=== PATIENT | male | born 1960 | race Caucasian/White ===

== ENCOUNTER 2023-07-28 08:21 | Inpatient (IN) | payer OTHER, SELFPAY ==
[2023-07-26] VITALS (7 sets, daily range): BP systolic 71–130; BP diastolic 35–70; BMI 37.3
[2023-07-26 12:09] LABS: Glucose - Point of Care 123 mg/dl (70-99)
--- NOTE | 2023-07-26 12:16 | ED.GENMED ---
History of Present Illness
General
Chief Complaint: DVT/Possible Blood Clot
Time Seen by Provider: 07/26/23 12:04
Travel History
Have you had any contact with someone who has COVID-19?: No
Do you have any symptoms of coronavirus? Fever > 100 degrees, chills, cough, shortness of breath, sore throat, loss of taste or smell, muscle aches, or headache?: No
History of Present Illness
History of Present Illness:
63-year-old male with history of hypertension presents to the emergency department for evaluation of sudden onset left thigh pain developing earlier this morning. He is currently resident at [facility], medical staff
evaluated him and noted that he was diaphoretic, apparently administered him 324 mg of aspirin and a sublingual nitroglycerin for transferring him to the emergency department. He states the pain in the left thigh is severe, has chronic neuropathy
in the lower extremities but denies any new numbness. Denies any fevers or chills, denies dizziness or lightheadedness. No chest pain or shortness of breath.
Review of Systems
Review of Systems
Allergies reviewed?: Yes
All Other Systems: ROS reviewed and negative except as documented in HPI and ROS
Phy Exam
Physical Exam
Physical Exam:
GEN: Diaphoretic, appears uncomfortable
Eyes: PERRLA, EOMs intact, no scleral icterus
HENT: NCAT, oral mucosa moist
Lungs: CTAB, no wheezes, rales, rhonchi, normal chest wall excursion
Cardiac: RRR, no M/R/G, no peripheral edema. Radial pulses 2+ bilat
Abdomen: S, NT, ND, NABS, no masses or hepatosplenomegaly
Neuro: AO x 3. Sensation intact to bilateral lower extremities without deficit
MSK/Skin: No gross deformity or ecchymosis. Exquisitely tender to even light palpation of the left thigh, no overt erythema. There is erythema however to the left medial calf, numerous skin excoriations and punctate skin lesions. Dorsalis pedis
pulses 2+ bilaterally
Psych: Calm, cooperative, proper hygiene
Course
Orders/Labs/Results
Orders:
Orders
07/26/23 Lunch
Cholesterol Lowering
At Your Request: Full Participation
Cholesterol Lowering: Sodium, 2 Gram
07/26/23 12:07
EKG [Electrocardiogram (*1)] Urgent
Reason for Study: Fatigue / Weakness
EKG- Treatment ONCE
07/26/23 12:16
Venous Doppler Lwr Ext Left [US Periph Venous LOWER Ext LT] Urgent
Comment:
Reason For Exam: L thigh pain/diaphoresis
07/26/23 12:30
Basic Metabolic Panel Urgent
CPK [Creatine Phosphokinase] Urgent
Complete Blood Count/With Diff Urgent
Lactic Acid Q4H
Comment: CANCEL 2nd LACTIC ACID IF 1st LACTIC ACID IS LESS THAN 2
Prothrombin Time Urgent
Blood Culture Q30M
JORDAN Source: Blood/Venous
Specimen Description:
07/26/23 13:29
0.9% Sodium Chloride 1000 ml [Nss] 1,000 ml IV BOLUS
07/26/23 14:30
CeFAZolin 1 GRAM [Ancef] 1 gram in 5 ml IV NOW
Vancomycin [Vancocin] 2,000 mg 0.9% Sodium Chloride 500 ml [Nss] 500 ml IV NOW
07/26/23 15:23
Admit/Transfer Patient As Directed
Co-Sign Provider:
Level of Care: Observation services
Assign to:: Medical/Surgical
Physician / Group: Adryan/Hospitalist
Diagnosis: LLE Cellulitis
07/26/23 15:27
Code Status As Directed
Resuscitation Status: Full Code
07/26/23 16:33
Blood Culture Q30M
JORDAN Source: Blood/Venous
Specimen Description:
07/26/23 17:22
0.9% Sodium Chloride 1000 ml [Nss] 1,000 ml IV 125 mls/hr
Acetaminophen [Tylenol] 650 mg PO Q4HPRN PRN
07/26/23 17:22
Urine Culture Urgent
JORDAN Source: Urine
Specimen Description:
Activity As Directed
Activity Level: Out of Bed-Early Mobility
Intake/ Output As Directed
Frequency: Per unit guidelines
Vital Signs As Directed
Frequency: Per unit guidelines
Pulse Ox/spot Check [RESP] Routine
Quantity: 1
Special Instructions: pulse oximetry on admission then every shift if on oxygen.
Call if oxygen saturation < ___ %
DX Deep Vein Thrombosis Video Routine
07/26/23 18:00
Enoxaparin Sodium [Lovenox] 40 mg SC QPM
07/26/23 18:56
Lactic Acid Q4H
Comment: CANCEL 2nd LACTIC ACID IF 1st LACTIC ACID IS LESS THAN 2
07/27/23 06:00
Complete Blood Count/With Diff IN AM
Comprehensive Metabolic Panel IN AM
Abnormal Lab Results
07/26/23 07/26/23
12:07 12:30
WBC 13.3 H 10^3/uL
(4.8-10.8)
Abs Immat Gran (auto) 0.1 H 10^3/uL
(0-0.05)
Absolute Neuts (auto) 11.6 H 10^3/uL
(1.4-6.5)
Absolute Lymphs (auto) 0.3 L 10^3/uL
(1.2-3.4)
Absolute Monos (auto) 1.1 H 10^3/uL
(0.1-0.6)
Immature Gran % 1.1 H %
(0-0.5)
Neutrophils % 87.4 H %
(42.2-75.2)
Lymphocytes % 2.6 L %
(20.5-51.1)
PT 14.7 H Sec
(11.4-14.6)
Sodium 133 L mmol/L
(135-145)
BUN 24 H mg/dl
(9-20)
Glucose 118 H mg/dl
(70-99)
Lactic Acid 2.2 H mmol/L
(0.7-2.0)
Creatine Kinase 185 H U/L
(55-170)
POC Glucose 123 H mg/dl
(70-99)
07/26/23 12:30
07/26/23 12:30
Vital Signs
Initial and Last Documented VS:
Initial Vital Signs
Pulse Ox
94
07/26/23 12:06
Last Documented Vital Signs
Temp Pulse Resp BP Pulse Ox
100.4 F H 79 18 116/68 97
07/26/23 17:37 07/26/23 17:34 07/26/23 17:37 07/26/23 17:34 07/26/23 17:52
MDM/Problems Addressed
MDM/Problems Addressed:
Unclear why exactly the patient has pain to the left thigh because the source of cellulitis appears to be the left calf. No evidence for DVT, and associated left groin adenopathy is likely reactive. He is high risk for complicated infections given
that he is a correctional facility resident, will admit for IV antibiotics
Comment
Comment:
Initial EKG independently interpreted by me shows normal sinus rhythm at a rate of [address] changes concerning for ischemia, QTc of 464
*Critical Care Note
Total Time (30-74mins, 75-104mins- exclusive of procedures): Not Applicable
ED Attending Note
-
Portions of this chart may have been created with voice recognition software.� Occasional wrong word or��sound alike� substitutions may have occurred due to the inherent limitations of voice recognition software.
Discharge Plan
Departure
Patient Disposition: Admit
Date of Disposition: 07/26/23
Time of Disposition: 14:08
Presentation/result/management discussed w/ accepting MD/DO: Hospitalist
Discharge Problem:
Cellulitis of left lower extremity
Interventions
Interventions:
*Risk Screen - Suicide Last Done: 07/26/23 17:58
*General Assessment Last Done: 07/26/23 13:39
*Neglect/Abuse Screening Last Done: 07/26/23 13:39
*ED COVID-19 Vaccine History Last Done: 07/26/23 13:39
*Nursing Disposition Last Done: 07/26/23 18:16
ED- Cardiac Assessment Last Done: 07/26/23 14:50
ED- Pulmonary Assessment Last Done: 07/26/23 13:43
ED-Peripheral Vascular Assessment Last Done: 07/26/23 14:52
ED-Skin Assessment Last Done: 07/26/23 14:51
Discharge Date and Time
Discharge Date/Time: 07/26/23 18:16
[2023-07-26 12:41] LABS: % Basophils 0.3 % (0-2); % Eosinophils 0.2 % (0-6); % Immature Granulocytes 1.1 % (0-0.5); % Lymphocytes 2.6 % (20.5-51.1); % Monocytes 8.4 % (1.7-9.3); % Neutrophils 87.4 % (42.2-75.2); Absolute Immature Granulocytes 0.1 10^3/uL (0-0.05); Absolute Lymphocytes 0.3 10^3/uL (1.2-3.4); Absolute Monocytes 1.1 10^3/uL (0.1-0.6); Absolute Neutrophils 11.6 10^3/uL (1.4-6.5); Hematocrit 39.9 % (39.0-52.0); Hemoglobin 14.6 g/dL (13.0-18.0); Mean Corp Hgb Conc. 36.6 g/dL (33.0-37.0); Mean Corpuscular Hgb 30.5 pg (27.0-31.0); Mean Corpuscular Volume 83.3 fL (80.0-94.0); Mean Platelet Volume 9.8 fL (7.4-10.4); Nucleated Red Blood Cells % 0 % (-); Platelet Count 183 10^3/uL (130-400); Red Blood Cell Count 4.79 10^6/uL (4.70-6.10); Red Cell Dist. Width 13.7 % (11.5-14.5); White Blood Cell Count 13.3 10^3/uL (4.8-10.8)
[2023-07-26 12:52] LABS: INR 1.17; PT 14.7 Sec (11.4-14.6)
[2023-07-26 12:53] LABS: Lactic Acid 2.2 mmol/L (0.7-2.0)
[2023-07-26 12:58] LABS: Blood Urea Nitrogen 24 mg/dl (9-20); Calcium 9.5 mg/dl (8.4-10.2); Carbon Dioxide 25 mmol/L (22-30); Chloride 101 mmol/L (98-107); Creatine Phosphokinase 185 U/L (55-170); Estimated Creatinine Clearance 91 ml/min; Glucose 118 mg/dl (70-99); Sodium 133 mmol/L (135-145); eGFR > 60.00
[2023-07-26] MEDS: NSS 1000 IV ×2 (14:39→17:47)
[2023-07-26] MEDS: ANCEF 5 IV (14:40)
[2023-07-26] MEDS: VANCOCIN 540 MG IV (14:41)
--- NOTE | 2023-07-26 14:49 | HPS.HSE ---
Addendum entered and electronically signed by Vanda Cornelius, 07/26/23 16:52:
Allergies
Allergy/AdvReac Type Severity Reaction Status Date / Time
No Known Allergies Allergy Unverified 07/26/23 12:02
Home Medications
escitalopram oxalate 10 mg tablet 10 mg PO DAILY 07/26/23
hydroxyzine pamoate 50 mg capsule 50 mg PO BID PRN anxiety 07/26/23
lisinopril 40 mg tablet 40 mg PO DAILY 07/26/23
lisinopril 40 mg tablet 40 mg PO DAILY 07/26/23
metoprolol tartrate 50 mg tablet 50 mg PO DAILY 07/26/23
metoprolol tartrate 50 mg tablet 75 mg PO HS 07/26/23
naproxen 375 mg tablet 375 mg PO BID PRN pain 07/26/23
nortriptyline 25 mg capsule 50 mg PO HS 07/26/23
omeprazole 20 mg capsule,delayed release 20 mg PO DAILY 07/26/23
Original Note:
Family Physician
-
Family Physician: Facility [facility]
Chief Complaint
-
LLE cellulitis
History of Present Illness
The patient is a 63-year-old male with PMH significant for HTN and chronic LE neuropathy, presents to ED for left thigh pain started this am suddenly. Resides at [facility], and medical staff there evaluated him for
diaphoresis this morning. He received aspirin 324 mg, SL NTG and sent to ED. Pain in left thigh is severe, and associated with left calf pain, redness, and swelling. No known trauma, patient denies having experienced these symptoms in the past, the
redness is new and is associated with pruritus, has some excoriation in LEs from itching. He has hx of IVDA a 'long time ago' and no recent drug use. No CP, no SOB, no fevers, no n/v/d. + diaphoresis.
ED txt:
-Ancef 1 gram IV once
-Vancomycin
-NS IVF bolus 1 liter
Medical History
Past Medical History
Past Medical History: Reports HTN and Other (b/l LE neuropathy)
Past Surgical History: Reports Other (hernia repair)
Social History
Tobacco: Non-smoker
Alcohol: None
Drug: Former User
Living: Custodial
Family History
Family History: Diabetes and Other (cancer)
Allergies / Home Medications
Allergies reflects when Allergies were last updated in [employer].
Home Medications with original date entered in [employer]
Allergy/Medication List:
Allergies
Allergy/AdvReac Type Severity Reaction Status Date / Time
No Known Allergies Allergy Unverified 07/26/23 12:02
Patient does not know what medications he takes. Called [facility] and no answer.
Review of Systems
-
A 12 point ROS was completed and negative except as noted: Yes
Physical Exam
Vital Signs
Vital Signs
Temp Pulse Resp BP Pulse Ox
98.7 F 73 24 106/69 95
07/26/23 12:10 07/26/23 14:30 07/26/23 14:30 07/26/23 14:00 07/26/23 14:30
Physical Exam
General: Well Developed, Well Nourished, No Apparent Distress and Comfortable
HEENT: NormoCephalic, Anicteric and Moist mucous membranes
Respiratory: Clear
Cardiac: S1/S2 and Regular Rhythm
GI: Soft, Non Tender and Non Distended
Musculoskeletal: No Clubbing, No Cyanosis and No Edema
Skin: Warm, Dry and Lesions (excoriations from scratching b/l LE, redness and induration ankle to below knee and excoriated funes on left thigh. compartments are soft, no areas of focal induration nor abscess)
Neuro: AO x 3, No Motor Deficits and Nonfocal/grossly intact
Psych: Calm
Laboratory Results
-
07/26/23 12:30
07/26/23 12:30
Laboratory Results
PT 14.7 Sec (11.4-14.6) H 07/26/23 12:30
INR 1.17 07/26/23 12:30
Lactic Acid 2.2 mmol/L (0.7-2.0) H 07/26/23 12:30
Total Bilirubin Cancelled 07/26/23 12:30
AST Cancelled 07/26/23 12:30
ALT Cancelled 07/26/23 12:30
Alkaline Phosphatase Cancelled 07/26/23 12:30
Data Reviewed
-
Ultrasound: Report Reviewed by me ( No evidence of deep venous thrombosis of the left lower extremity.)
Medical Tests (Nuc Med, Echo, EKG etc): Image Personally Visualized and interpreted (EKG NSR at a rate of [address] changes concerning for ischemia, QTc 464) and Report Reviewed by me
Impression/Plan
-
IMPRESSION:The patient is a 63-year-old male with PMH significant for HTN and chronic LE neuropathy, presents to ED for left thigh pain started this am suddenly. Resides at [facility], and medical staff there evaluated him
for diaphoresis this morning. He received aspirin 324 mg, SL NTG and sent to ED. Pain in left thigh is severe, and associated with left calf pain, redness, and swelling. No known trauma, patient denies having experienced these symptoms in the past,
the redness is new and is associated with pruritus, has some excoriation in LEs from itching. He has hx of IVDA a 'long time ago' and no recent drug use. No CP, no SOB, no fevers, no n/v/d. + diaphoresis.
ED txt:
-Ancef 1 gram IV once
-Vancomycin IV once
-NS IVF bolus 1 liter
#LLE Cellulitis associated with thigh pain and systemic inflammatory response (HR 95, RR 22, WBC 13.3) and lactic acidosis 2.2
-�No evidence of deep venous thrombosis of the left lower extremity.
- Cont IV Vancomycin and monitor signs and symptoms
- blood cultures
-IV NS 125 mL per hour x 1 liters then reassess
#HTN, essential
-will have to get med rec (patient does not recall HTN meds and no list from [facility])
#Prior history of IVDA, has not used drugs in years
#Prior tobacco use -stopped 1 year ago
[facility]
DVT proph-Lovenox
Full Code
--- NOTE | 2023-07-26 17:44 | PHA.VAN.IN ---
Assessment
- Assessment
Renal Function: Unknown baseline
Maximum Temperature: 100.4F rectal
Concomitant Antimicrobials: Cefazolin
AUC Dosing Plan
- Dosing Variables
Dosing Weight (kg): 108
Dosing CrCl (ml/min): 91
Vd coefficient (L/kg): 0.6
- Empiric Dosing
Initial / Loading Dose: Vanco 2000 mg
Maintenance Regimen: Vanco 1250 mg
Estimated AUC (mcg*h/mL): 512
Estimated Peak (mcg*h/mL): 31.3
Estimated Trough (mcg/ml): 13.5
Estimated Half Life (H): 8.7
- Monitoring
No levels ordered at this time: Consider level in next few days
Pharmacokinetics Vancomycin I
- -
Patient Age: 63
Patient Sex: Male
Vancomycin Day #: 1
Indication: Skin And Soft Tissue (LLE cellulitis)
Requesting Provider: Dr. Cornelius
Pertinent Antimicrobial Allergies:
NKA
Height / Weight:
Height 5 ft 7 in
Actual Weight 108 kg
- Vital Signs / Lab Results
Temp Pulse Resp BP Pulse Ox
100.4 F H 79 18 116/68 97
07/26/23 17:37 07/26/23 17:34 07/26/23 17:37 07/26/23 17:34 07/26/23 17:34
Lab Results - Hematology
07/26/23
12:30
WBC 13.3 H
Lab Results - Chemistry
07/26/23
12:30
BUN 24 H
Creatinine 1.0
Estimated Creat Clear 91
Albumin Cancelled
07/26/23
12:30
Lactic Acid 2.2 H
[2023-07-26] MEDS: LOVENOX 40 MG SC (17:47)
[2023-07-26] MEDS: TYLENOL 650 MG PO (17:47)
--- NOTE | 2023-07-26 18:40 | PTCARENOTE ---
Pt admitted from ED, c/o 12/11 left leg pain. Left leg warm red and swollen, weak dorsalis pedal pulse present. Pt diaphoretic with rectal temp of 100.4, pt given tylenol, IV fluids as ordered. Pt unable to bear weight on his right leg due to pain.
[2023-07-26 19:17] LABS: Lactic Acid 2.4 mmol/L (0.7-2.0)
[2023-07-26] MEDS: ANCEF 10 IV (22:11)
[2023-07-26] MEDS: PAMELOR 50 MG PO (22:11)
[2023-07-26] MEDS: LOPRESSOR 75 MG PO (22:12)
[2023-07-26] MEDS: REFRESH EYE DROPS (PF) 1 DROPS OPHTH (22:50)
[2023-07-27] MEDS: ROBITUSSIN 100 MG PO ×2 (03:51→17:31)
[2023-07-27] MEDS: VANCOCIN 275 MG IV ×2 (05:48→17:28)
[2023-07-27 06:44] LABS: % Basophils 0.4 % (0-2); % Eosinophils 0.1 % (0-6); % Immature Granulocytes 0.9 % (0-0.5); % Lymphocytes 5.6 % (20.5-51.1); % Monocytes 3.6 % (1.7-9.3); % Neutrophils 89.4 % (42.2-75.2); Absolute Immature Granulocytes 0.1 10^3/uL (0-0.05); Absolute Lymphocytes 0.6 10^3/uL (1.2-3.4); Absolute Monocytes 0.4 10^3/uL (0.1-0.6); Absolute Neutrophils 9.4 10^3/uL (1.4-6.5); Hematocrit 36.8 % (39.0-52.0); Mean Corp Hgb Conc. 35.3 g/dL (33.0-37.0); Mean Corpuscular Hgb 30.5 pg (27.0-31.0); Mean Corpuscular Volume 86.4 fL (80.0-94.0); Mean Platelet Volume 9.2 fL (7.4-10.4); Nucleated Red Blood Cells % 0 % (-); Platelet Count 131 10^3/uL (130-400); Red Blood Cell Count 4.26 10^6/uL (4.70-6.10); White Blood Cell Count 10.5 10^3/uL (4.8-10.8)
[2023-07-27 07:00] VITALS: BP 155/76
[2023-07-27 07:14] LABS: ALT (SGPT) 68 U/L (0-50); AST (SGOT) 55 U/L (17-59); Albumin 3.1 g/dl (3.5-5.0); Alkaline Phosphatase 53 U/L (38-126); Blood Urea Nitrogen 21 mg/dl (9-20); Calcium 8.3 mg/dl (8.4-10.2); Carbon Dioxide 25 mmol/L (22-30); Chloride 105 mmol/L (98-107); Estimated Creatinine Clearance 101 ml/min; Glucose 109 mg/dl (70-99); Potassium 4.2 mmol/L (3.5-5.1); Sodium 131 mmol/L (135-145); Total Protein 6.2 g/dl (6.3-8.2); eGFR > 60.00
[2023-07-27] MEDS: ANCEF 10 IV ×2 (07:51→16:15)
[2023-07-27] MEDS: LOPRESSOR 50 MG PO (07:52)
[2023-07-27] MEDS: ZESTRIL 40 MG PO (07:52)
[2023-07-27] MEDS: PROTONIX 40 MG PO (07:52)
[2023-07-27] MEDS: LEXAPRO 10 MG PO (07:52)
--- NOTE | 2023-07-27 10:04 | PHA.VAN.FU ---
Vancomycin Assessment / Plan
- Assessment
Renal Function: Stable
WBC's are: Trending Down
Concomitant Antimicrobials: cefazolin
- Dosing Plan
Continue: Vanc 1250mg Q12H
- Monitoring Plan
No level(s) ordered at this time: consider levels in next few days
- Follow Up
Pharmacy will continue to follow.
Vancomycin Follow UP
- -
Patient Age: 63
Patient Sex: Male
Vancomycin Day #: 2
Indication: Skin And Soft Tissue
Requesting Provider: Dr. Cornelius
Pertinent Antimicrobial Allergies:
NKDA
Height / Weight:
Height 5 ft 7 in
Actual Weight 108 kg
Pertinent Past Medical History: BMI ~37
- Vital Signs / Lab Results
Temp Pulse Resp BP Pulse Ox
98.6 F 74 19 155/76 96
07/27/23 07:00 07/27/23 07:00 07/27/23 07:00 07/27/23 07:00 07/27/23 07:00
Lab Results - Hematology
07/26/23 07/27/23
12:30 06:15
WBC 13.3 H 10.5
Lab Results - Chemistry
07/26/23 07/27/23
12:30 06:15
BUN 24 H 21 H
Creatinine 1.0 0.9
Estimated Creat Clear 91 101
Albumin Cancelled 3.1 L
07/26/23 07/26/23
12:30 18:56
Lactic Acid 2.2 H 2.4 H
[2023-07-27] MEDS: TYLENOL 650 MG PO ×2 (11:58→17:31)
--- NOTE | 2023-07-27 13:28 | CM ---
Patient from [facility]. He signed obs letter. Will return to intermediate when stable.
Plan: Case management will continue to follow and assist with discharge planning. Patient will return to [facility] when medically stable.
--- NOTE | 2023-07-27 14:55 | W.PN.HOSP.TC ---
Addendum entered and electronically signed by Raymundo Moser MD 07/27/23 23:39:
Attending Addendum-
I saw and evaluated the patient. I reviewed the resident�s note and agree with findings and plan as documented in the resident�s note. Complains of worsening pain and spreading cellulitis in LLE. Had fever in last 24 hours Full 12 point ROS reviewed
and negative except as documented Exam: Gen NAD heart RRR lungs clear abd soft LE- LLE red warm extending to groin Plan:
# Sepsis Secondary to cellulitis- vikas area of cellulitis, cont vanco zosyn start IVF, repeat CBC in in am
# Hyponatremia- hypovolemic - start IVF if worsens check urine studies for further eval repeat BMP in am
# Leukocytosis- resolving- repeat CBC in am
# Depression- cont eds
# HTN-stable monitor cont meds
# GERD- cont meds
Time spent coordinating care, review of plan of care with resident, review of records, med rec, consults, notes, labs, rads, d/w nursing � 52 mins
Original Note:
Today's Communication/Plan
-
Continue antibiotics
Await blood cultures and urine cultures
IV fluids
Monitor WBC and temperature curve
Assessment / Plan
Assessment / Plan
Impression
Left lower leg cellulitis
Hyponatremia
Cough
Hypertension
Prior IV drug use
Prior tobacco use
Plan :
Left lower leg cellulitis
Continue IV cefazolin and IV vancomycin
Await for urine and blood cultures
One true fever of 100.4 in the past 24 hours
Monitor WBC, temperature curve
If temperature keeps rising then consider changing antibiotics antibiotics and get ID on board.
Peripheral vascular ultrasound 07/26/2023
IMPRESSION: No evidence of deep venous thrombosis of the left lower extremity.
Hyponatremia
Volume status euvolemic
Sodium 131
Started on IV fluids
CBC BMP in a.m
Cough
Mucinex ordered
Hypertension
Continue home meds- lisinopril and metoprolol
Prior IV drug use-denies using it
prior tobacco use-quit a year ago
DVT prophylaxis
Lovenox
Anticipated Discharge: 24 - 48 hours
Subjective/Interval History
-
Date of Service: July 27, 2023
Patient complains of increased pain pain in his left inner thigh and is now warm to touch.
Objective Data
-
Labs:
Laboratory Results
07/27/23
06:15
WBC 10.5
Hgb 13.0
Hct 36.8 L
Plt Count 131 D
Sodium 131 L
Potassium 4.2
Chloride 105
Carbon Dioxide 25
BUN 21 H
Creatinine 0.9
Glucose 109 H
Calcium 8.3 L
Total Bilirubin 1.0
AST 55
ALT 68 H
Alkaline Phosphatase 53
Vital Signs:
Vital Signs
Temp Pulse Resp BP Pulse Ox
98.6 F 74 19 155/76 96
07/27/23 07:00 07/27/23 07:00 07/27/23 07:00 07/27/23 07:00 07/27/23 07:00
I&O
07/26/23 07/27/23 07/28/23
06:59 06:59 06:59
Intake Total 1505 / 1505
Output Total 600 / 600
Balance 905 / 905
Review of Systems
-
History Source: Patient
All other systems: Reviewed and negative (Except mentioned)
Musculoskeletal: Reports Other (Pain in left inner thigh)
Physical Exam
-
General: Well Developed and Well Nourished
HEENT: Normocephalic and Atraumatic
Respiratory: Clear to Auscultation
Cardiac: Regular Rhythm and S1/S2
GI: Soft, Nontender and Nondistended
Skin: Warm (Erythematous starting from left cough extending up to the inner thigh, tender to touch)
Neuro: AO x 3
Psych: Calm
Data Reviewed
-
Diagnostic Radiology: Discussed with Physician
Labs: Labs Reviewed by me and Discussed with Physician
[2023-07-27 15:00] VITALS: BP 131/80
[2023-07-27] MEDS: NSS 500 IV ×2 (16:10→23:14)
[2023-07-27] MEDS: LOVENOX 40 MG SC (17:28)
[2023-07-27] MEDS: MUCINEX 600 MG PO (20:36)
[2023-07-27 23:00] VITALS: BP 142/90
[2023-07-27] MEDS: PAMELOR 50 MG PO (23:12)
[2023-07-27] MEDS: LOPRESSOR 75 MG PO (23:12)
[2023-07-28] MEDS: ANCEF 10 IV ×3 (00:49→16:51)
[2023-07-28] MEDS: VANCOCIN 275 MG IV ×2 (06:12→17:17)
[2023-07-28 06:34] LABS: % Basophils 0.4 % (0-2); % Eosinophils 3.4 % (0-6); % Immature Granulocytes 0.5 % (0-0.5); % Lymphocytes 11.1 % (20.5-51.1); % Monocytes 8.6 % (1.7-9.3); Absolute Eosinophils 0.3 10^3/uL (0-0.7); Absolute Lymphocytes 0.9 10^3/uL (1.2-3.4); Absolute Monocytes 0.7 10^3/uL (0.1-0.6); Absolute Neutrophils 6.1 10^3/uL (1.4-6.5); Hematocrit 36.6 % (39.0-52.0); Hemoglobin 12.7 g/dL (13.0-18.0); Mean Corp Hgb Conc. 34.7 g/dL (33.0-37.0); Mean Corpuscular Hgb 29.7 pg (27.0-31.0); Mean Corpuscular Volume 85.7 fL (80.0-94.0); Mean Platelet Volume 9.1 fL (7.4-10.4); Nucleated Red Blood Cells % 0 % (-); Platelet Count 128 10^3/uL (130-400); Red Blood Cell Count 4.27 10^6/uL (4.70-6.10)
[2023-07-28] MEDS: NSS 500 IV (07:02)
[2023-07-28 07:55] VITALS: BP 148/91
[2023-07-28] MEDS: LEXAPRO 10 MG PO (07:56)
[2023-07-28] MEDS: ZESTRIL 40 MG PO (07:56)
[2023-07-28] MEDS: PROTONIX 40 MG PO (07:56)
[2023-07-28] MEDS: MUCINEX 600 MG PO ×2 (07:57→19:59)
[2023-07-28] MEDS: LOPRESSOR 50 MG PO (07:57)
[2023-07-28 08:00] LABS: Blood Urea Nitrogen 15 mg/dl (9-20); Calcium 8.4 mg/dl (8.4-10.2); Carbon Dioxide 23 mmol/L (22-30); Chloride 105 mmol/L (98-107); Estimated Creatinine Clearance 114 ml/min; Glucose 107 mg/dl (70-99); Potassium 4.1 mmol/L (3.5-5.1); Sodium 133 mmol/L (135-145); eGFR > 60.00
--- NOTE | 2023-07-28 08:01 | PTCARENOTE ---
Redness to LLE outlined, extends up to L thigh and groin. +2 edema to LLE noted. Peripheral pulses +2 throughout.
--- NOTE | 2023-07-28 09:06 | PHA.VAN.FU ---
Vancomycin Assessment / Plan
- Assessment
Renal Function: Stable
WBC's are: WNL
Concomitant Antimicrobials: cefazolin
- Dosing Plan
Continue: Vanc 1250mg Q12H
- Monitoring Plan
No level(s) ordered at this time: consider levels in next few days
- Follow Up
Pharmacy will continue to follow.
Vancomycin Follow UP
- -
Patient Age: 63
Patient Sex: Male
Vancomycin Day #: 3
Indication: Skin And Soft Tissue
Requesting Provider: Dr. Cornelius
Pertinent Antimicrobial Allergies:
NKDA
Height / Weight:
Height 5 ft 7 in
Actual Weight 108 kg
Pertinent Past Medical History: BMI ~37
- Vital Signs / Lab Results
Temp Pulse Resp BP Pulse Ox
98.4 F 73 16 148/91 98
07/28/23 07:55 07/28/23 07:55 07/28/23 07:55 07/28/23 07:55 07/28/23 07:55
Lab Results - Hematology
07/26/23 07/27/23 07/28/23
12:30 06:15 06:20
WBC 13.3 H 10.5 8.0
Lab Results - Chemistry
07/26/23 07/27/23 07/28/23
12:30 06:15 06:20
BUN 24 H 21 H 15
Creatinine 1.0 0.9 0.8
Estimated Creat Clear 91 101 114
Albumin Cancelled 3.1 L
07/26/23 07/26/23
12:30 18:56
Lactic Acid 2.2 H 2.4 H
Microbiology Results
07/27/23 00:51 MRSA Screen - Final
Nose No Methicillin Resistant Staphylococcus aureus isolated.
07/26/23 16:33 Blood Culture - Preliminary
Blood/Venous No Growth in 24 hours- Final report to follow
07/26/23 12:30 Blood Culture - Preliminary
Blood/Venous No Growth in 24 hours- Final report to follow
--- NOTE | 2023-07-28 15:03 | W.PN.HOSP.TC ---
Addendum entered and electronically signed by Raymundo Moser MD 07/28/23 21:21:
Attending Addendum-
I saw and evaluated the patient. I reviewed the resident�s note and agree with findings and plan as documented in the resident�s note. continues to have worsening discomfort and spead of redness and warmth up leg. afebrile last 24 hours Full 12
point ROS reviewed and negative except as documented Exam: Gen NAD heart RRR lungs clear abd soft LE- LLE red warm extending to groin nodular Plan:
# Sepsis Secondary to cellulitis- worsening, c/s ID for eval, cont vanco ancef for now, cont IVF, repeat CBC in in am
# Hyponatremia- hypovolemic - improved with IVF, continue, repeat BMP in am
# Leukocytosis- resolved- repeat CBC in am�
# Depression- cont meds
# HTN-stable monitor cont meds
# GERD- cont meds
Time spent coordinating care, review of plan of care with resident, review of records, med rec, consults, notes, labs, rads, d/w nursing � 51 mins
Original Note:
Today's Communication/Plan
-
Consult ID
Continue antibiotics
monitor WBC and temperature curve
Assessment / Plan
Assessment / Plan
Impression
Left lower leg cellulitis
Hyponatremia
Cough
Hypertension
Prior IV drug use
Prior tobacco use
Plan :
Left lower leg cellulitis
Patient continues to complain of pain
Consult ID
Urine culture prelim no growth
Blood culture prelim no growth
Continue IV cefazolin and IV vancomycin
Afebrile in the past 24 hours
Monitor WBC, temperature curve
Peripheral vascular ultrasound 07/26/2023
IMPRESSION: No evidence of deep venous thrombosis of the left lower extremity.
Hyponatremia
Volume status euvolemic
Sodium improved
Continue IV fluids
CBC BMP in a.m
Cough
Mucinex ordered
Hypertension
Continue home meds- lisinopril and metoprolol
Prior IV drug use-denies using it
prior tobacco use-quit a year ago
DVT prophylaxis
Lovenox
Anticipated Discharge: 24 - 48 hours
Subjective/Interval History
-
Date of Service: July 28, 2023
Patient complains of increased pain in his left calf and left inner thigh
Objective Data
-
Labs:
Laboratory Results
07/28/23
06:20
WBC 8.0
Hgb 12.7 L
Hct 36.6 L
Plt Count 128 L
Sodium 133 L
Potassium 4.1
Chloride 105
Carbon Dioxide 23
BUN 15
Creatinine 0.8
Glucose 107 H
Calcium 8.4
Vital Signs:
Vital Signs
Temp Pulse Resp BP Pulse Ox
98.4 F 73 16 148/91 98
07/28/23 07:55 07/28/23 07:55 07/28/23 07:55 07/28/23 07:55 07/28/23 07:55
I&O
07/27/23 07/28/23 07/29/23
06:59 06:59 06:59
Intake Total 1505 / 1505 2775 / 2775
Output Total 600 / 600 3300 / 3300
Balance 905 / 905 -525 / -525
Review of Systems
-
History Source: Patient
All other systems: Reviewed and negative (Except mentioned)
Musculoskeletal: Reports Other (Pain in left cough extending up to her left inner thigh)
Physical Exam
-
General: Pain
HEENT: Normocephalic and Atraumatic
Respiratory: Clear to Auscultation
Cardiac: Regular Rhythm and S1/S2
GI: Soft and Nontender
Musculoskeletal: Edema, Left Lower Extrem
Skin: Warm (Tender to touch, erythematous, 2+ swelling from left cough extending up to left inner thigh)
Neuro: AO x 3
Psych: Calm
Data Reviewed
-
Labs: Labs Reviewed by me and Discussed with Physician
[2023-07-28 15:28] VITALS: BP 149/83
[2023-07-28] MEDS: NSS 1000 IV (15:39)
[2023-07-28] MEDS: NSS IV (16:17)
--- NOTE | 2023-07-28 17:12 | CON.ID ---
Consultation
-
Date/Time Consultation Requested: 07/28/2023, 1518
Date/Time Consultation Performed: 07/28/2023, 1715
Requesting Provider: Dr. Yash Zimmerman
Performing Provider: Dr. Amelie Lloyd
Reason for Consultation: Urgent consult for spreading cellulitis
Chief Complaint / Past History
Chief Complaint
Left thigh and leg redness
History of Present Illness
63year old male with hx neuropathy, past hx IVDA, currently in nursing home > 1 year , who presented to ED 07/25 with left thigh pain and LE cellulitis. He states on Tuesday 07/25 he suddenly developed shaking chills, then sweats and diaphoresis. He noted
left medial thigh pain. In ED T=100.4, WBC 13.3. Pt noted to have erythema LE ankle to knee. He has been on Vancomycin and cefazolin. He then developed erythema on thigh. Today, erythema on thigh continues to ascend up. Still have upper thigh pain.
Leg looks more red today. He admits to scratching his arms and legs often due to pruritus.
Past History
Additional Past Medical History:
HTN
Neuropathy
Past hx IVDA
incarcerated
Additional Past Surgical History:
Hernia repair
Allergy History:
No Known Allergies Allergy (Unverified 07/26/23 12:02)
Medications Reviewed: Yes
Current Antibiotics:
Cefazolin d3
vancomycin d3
Social History
Tobacco: Former Smoker
Alcohol: None
Drug: Former User
Living: Snf
Family History
Family History: Not Pertinent
Review of Systems
Review of Systems
General: Fever and Chills; Negative Change in Appetite
HEENT: Negative Sinus Problems, Headache or Pharyngitis
Cardiovascular: Negative Chest Pain or Dyspnea
Respiratory: Negative Dyspnea or Cough
Gasteroenterology: Other (no diarrhea); Negative Nausea or Vomiting
Genital / Urological: Negative Dysuria or Flank Pain
Neurological: Negative Headache or Dizziness
All systems: All other systems were reviewed and were negative
Vital Signs
Temp Pulse Resp BP Pulse Ox
99.6 F 88 17 149/83 97
07/28/23 15:28 07/28/23 15:28 07/28/23 15:28 07/28/23 15:28 07/28/23 15:28
Physical Exam
Physical Exam
Constitutional: No Acute Distress and Comfortable
Eyes: No Conjunctival Hemorrhage; Negative Sclera Anicteric
Cardiovascular: Regular Rate and S1/S2
Pulmonary: Clear
Gastrointestinal: Non Tender, Non Distended and Normal Bowel Sounds
Genito-Urinary: Negative Leonardo or CVA Tenderness
Extremities: Edema (2-3+ edema LLE) and Erythema (LLE: erythema from ankle to knee including posterior leg, + warmth; Left thigh: positive erythema from medial thigh to anterior thigh extending to groin, up lateral hip, + warmth)
Skin: Other (Scattered excoriations on BUE, BLE. + tattoos on BUE.)
Wound: Other (fissure on left great toe posterior crease, does not look infected)
Neurological: AO x 3
Lab / Diagnostic Study Results
07/28/23 06:20
07/28/23 06:20
Abs Immat Gran (auto) 0.0 10^3/uL (0-0.05) 07/28/23 06:20
Absolute Neuts (auto) 6.1 10^3/uL (1.4-6.5) 07/28/23 06:20
Absolute Lymphs (auto) 0.9 10^3/uL (1.2-3.4) L 07/28/23 06:20
Absolute Monos (auto) 0.7 10^3/uL (0.1-0.6) H 07/28/23 06:20
Absolute Basos (auto) 0.0 10^3/uL (0-0.2) 07/28/23 06:20
Immature Gran % 0.5 % (0-0.5) 07/28/23 06:20
Neutrophils % 76.0 % (42.2-75.2) H 07/28/23 06:20
Lymphocytes % 11.1 % (20.5-51.1) L 07/28/23 06:20
Monocytes % 8.6 % (1.7-9.3) 07/28/23 06:20
Eosinophils % 3.4 % (0-6) 07/28/23 06:20
Basophils % 0.4 % (0-2) 07/28/23 06:20
PT 14.7 Sec (11.4-14.6) H 07/26/23 12:30
INR 1.17 07/26/23 12:30
Lactic Acid 2.4 mmol/L (0.7-2.0) H 07/26/23 18:56
Microbiology Results
Micro:
07/26/23 16:33 Blood Culture - Preliminary
Blood/Venous No Growth in 48 hours- Final report to follow
07/26/23 12:30 Blood Culture - Preliminary
Blood/Venous No Growth in 48 hours- Final report to follow
07/27/23 00:51 Urine Culture - Preliminary
Urine NO GROWTH
07/27/23 00:51 MRSA Screen - Final
Nose No Methicillin Resistant Staphylococcus aureus isolated.
07/28/23 Venous US LLE: No evidence of deep venous thrombosis of the left lower extremity.
Assessment / Plan
# Acute LLE leg and thigh cellulitis continues to progress
- Suspect Streptococcal (GAS) infection.
- Add short course clindamycin 900 mg IV q8 as toxin inhibitor.
-Continue cefazolin.
-DC Vancomycin.
- YESSY-Wrap leg.
# Fever and leukocytosis resolved.
-Blood cx's neg to date.
[2023-07-28] MEDS: LOVENOX 40 MG SC (17:17)
[2023-07-28] MEDS: CLEOCIN 50 IV (18:13)
[2023-07-28] MEDS: PAMELOR 50 MG PO (21:46)
[2023-07-28] MEDS: LOPRESSOR 75 MG PO (21:47)
[2023-07-28] MEDS: ROBITUSSIN 100 MG PO (21:49)
[2023-07-28 23:00] VITALS: BP 142/87
[2023-07-29] MEDS: FLUSH (NSS) 1 FLUSH IV (00:09)
[2023-07-29] MEDS: ANCEF 10 IV ×3 (00:09→17:25)
[2023-07-29] MEDS: CLEOCIN 50 IV ×3 (02:30→17:27)
--- NOTE | 2023-07-29 03:27 | DOWNTIME ---
There was a [employer] Client Human Resources Technician Downtime on 07/29/2023 from 0100 to 07/29/2023 at 0322. Downtime documentation of patient's care, including medication administrations, has been reconciled in the electronic record per guidelines. Refer to the
patient's paper chart under the miscellaneous tab to see printed paper medication records and downtime forms.
[2023-07-29] MEDS: NSS 1000 IV ×2 (05:38→17:26)
[2023-07-29 06:48] LABS: % Basophils 0.5 % (0-2); % Eosinophils 7.6 % (0-6); % Immature Granulocytes 1.2 % (0-0.5); % Lymphocytes 17.3 % (20.5-51.1); % Monocytes 10.2 % (1.7-9.3); % Neutrophils 63.2 % (42.2-75.2); Absolute Eosinophils 0.5 10^3/uL (0-0.7); Absolute Immature Granulocytes 0.1 10^3/uL (0-0.05); Absolute Lymphocytes 1.1 10^3/uL (1.2-3.4); Absolute Monocytes 0.7 10^3/uL (0.1-0.6); Absolute Neutrophils 4.1 10^3/uL (1.4-6.5); Hematocrit 35.8 % (39.0-52.0); Hemoglobin 12.4 g/dL (13.0-18.0); Mean Corp Hgb Conc. 34.6 g/dL (33.0-37.0); Mean Corpuscular Hgb 29.8 pg (27.0-31.0); Mean Corpuscular Volume 86.1 fL (80.0-94.0); Mean Platelet Volume 9.3 fL (7.4-10.4); Nucleated Red Blood Cells % 0 % (-); Platelet Count 146 10^3/uL (130-400); Red Blood Cell Count 4.16 10^6/uL (4.70-6.10); Red Cell Dist. Width 13.8 % (11.5-14.5); White Blood Cell Count 6.5 10^3/uL (4.8-10.8)
[2023-07-29 07:00] VITALS: BP 159/92
[2023-07-29 08:08] LABS: Blood Urea Nitrogen 16 mg/dl (9-20); Calcium 8.2 mg/dl (8.4-10.2); Carbon Dioxide 28 mmol/L (22-30); Chloride 102 mmol/L (98-107); Estimated Creatinine Clearance 101 ml/min; Glucose 104 mg/dl (70-99); Potassium 3.8 mmol/L (3.5-5.1); Sodium 136 mmol/L (135-145); eGFR > 60.00
--- NOTE | 2023-07-29 08:18 | W.PN.HOSP.TC ---
Addendum entered and electronically signed by Raymundo Moser MD 07/29/23 21:14:
Attending Addendum-
I saw and evaluated the patient. I reviewed the resident�s note and agree with findings and plan as documented in the resident�s note. less pain improving redenss and warmth of LLE. afebrile last 24 hours Full 12 point ROS reviewed and negative
except as documented Exam: Gen NAD heart RRR lungs clear abd soft LE- LLE pink less warm pulses intact Plan:
# Sepsis Secondary to cellulitis- improving appreciate ID input- DC vanco, added clindamycin 07/27- cont ancef, DC IVF, repeat CBC in in am
# Hyponatremia- resolved with with IVF, DC, repeat BMP in am
# Leukocytosis- resolved- repeat CBC in am�
# Depression- cont meds
# HTN-stable monitor cont meds
# GERD- cont meds
Time spent coordinating care, review of plan of care with resident, review of records, med rec, consults, notes, labs, rads, d/w nursing � 35 mins
Original Note:
Today's Communication/Plan
-
Continue with cefazolin and clindamycin
Monitor WBC and temp curve
Assessment / Plan
Assessment / Plan
Impression
Left lower leg cellulitis
Hyponatremia
Cough
Hypertension
Prior IV drug use
Prior tobacco use
Plan :
Left lower leg cellulitis
ID eval appreciated
Suspect streptococcal (GAS) infection per ID
Vancomycin discontinued, continue cefazolin
Short course of clindamycin as it will decrease the toxin produced by the bacteria, also help in microbial opsonization and phagocytosis
Syed wrap
CRP sensitivity > 15, afebrile in the past 24 hours
Monitor WBC, temperature curve
Peripheral vascular ultrasound 07/26/2023
IMPRESSION: No evidence of deep venous thrombosis of the left lower extremity.
Hyponatremia
Resolved
CBC BMP in a.m
Cough
Mucinex ordered
Hypertension
Continue home meds- lisinopril and metoprolol
Prior IV drug use-denies using it
prior tobacco use-quit a year ago
DVT prophylaxis
Lovenox
Anticipated Discharge: 24 - 48 hours
Subjective/Interval History
-
Date of Service: July 29, 2023
Patient states his swelling and pain has improved
Objective Data
-
Labs:
Laboratory Results
07/29/23
06:36
WBC 6.5
Hgb 12.4 L
Hct 35.8 L
Plt Count 146
Sodium 136
Potassium 3.8
Chloride 102
Carbon Dioxide 28
BUN 16
Creatinine 0.9
Glucose 104 H
Calcium 8.2 L
Vital Signs:
Vital Signs
Temp Pulse Resp BP Pulse Ox
99.3 F 78 16 142/87 95
07/28/23 23:00 07/28/23 23:00 07/28/23 23:00 07/28/23 23:00 07/28/23 23:00
I&O
07/28/23 07/29/23 07/30/23
06:59 06:59 06:59
Intake Total 2775 / 2775 3205 / 3205 480 / 480
Output Total 3300 / 3300 1600 / 1600 300 / 300
Balance -525 / -525 1605 / 1605 180 / 180
Review of Systems
-
History Source: Patient
All other systems: Reviewed and negative
Physical Exam
-
General: Well Developed and Well Nourished
HEENT: Atraumatic
Respiratory: Clear to Auscultation
Cardiac: Regular Rhythm and S1/S2
GI: Soft, Nontender and Nondistended
Musculoskeletal: Edema, Left Lower Extrem (Improved)
Skin: Warm (Erythema and swelling has improved in left left lower extremity and thigh)
Neuro: AO x 3
Psych: Calm
[2023-07-29 08:34] LABS: CRP, Highly Sensitive > 15.00 mg/L
[2023-07-29] MEDS: PROTONIX 40 MG PO (08:44)
[2023-07-29] MEDS: MUCINEX 600 MG PO ×2 (08:44→20:18)
[2023-07-29] MEDS: LEXAPRO 10 MG PO (08:44)
[2023-07-29] MEDS: LOPRESSOR 50 MG PO (08:45)
[2023-07-29] MEDS: ZESTRIL 40 MG PO (08:45)
[2023-07-29] MEDS: VISBIOME 2 CAP PO (08:53)
[2023-07-29] MEDS: TYLENOL 650 MG PO (08:57)
--- NOTE | 2023-07-29 11:27 | CM ---
Patient continues to need acute care. Will return to half-way when stable.
Plan: Case management will continue to follow and assist with discharge planning. Skilled Nursing when medically cleared.
--- NOTE | 2023-07-29 13:32 | W.PN.ID1 ---
Date of Service
Date of Service: July 29, 2023
Today's Communication
Continue cefazolin, clindamycin, compression.
Assessment / Plan
# Acute LLE leg and thigh cellulitis stable today
- Suspect Streptococcal (GAS) infection.
- Continue short course clindamycin 900 mg IV q8 (dose 3 of 9) as toxin inhibitor.
-Continue cefazolin.
- Continue YESSY-Wrap leg.
- Emphasized avoidance of scratching.
# Fever and leukocytosis resolved.
-Blood cx's neg to date.
# Additional Past Medical History:
HTN
Neuropathy
Past hx IVDA
incarcerated
Chief Complaint
-: Cellulitis
Subjective / Review of Systems
Thigh pain is a lot better. Leg still swollen.
Vital Signs / Physical Exam
Vital Signs
Vital Signs
Temp Pulse Resp BP Pulse Ox
97.5 F 75 16 159/92 96
07/29/23 07:00 07/29/23 08:45 07/29/23 07:00 07/29/23 08:45 07/29/23 07:00
Physical Exam
Constitutional: No Acute Distress
Extremities: Edema (LLE 2-3+) and Erythema (Erythema slighty receding from ankle otherwise stable leg, thigh to groin/hip erythema without progression. + warmth)
Skin: Rash (scattered excoriations BUE, BLE,abdomen)
Objective Data
Lab Data
Lab Results
07/29/23 06:36
07/29/23 06:36
PT 14.7 Sec (11.4-14.6) H 07/26/23 12:30
INR 1.17 07/26/23 12:30
Estimated Creat Clear 101 ml/min 07/29/23 06:36
Lactic Acid 2.4 mmol/L (0.7-2.0) H 07/26/23 18:56
Total Bilirubin 1.0 mg/dl (0.2-1.3) 07/27/23 06:15
AST 55 U/L (17-59) 07/27/23 06:15
ALT 68 U/L (0-50) H 07/27/23 06:15
Alkaline Phosphatase 53 U/L (38-126) 07/27/23 06:15
Most recent labs reviewed.
Micro Results:
07/26/23 12:30 Blood Culture - Preliminary
Blood/Venous No Growth in 72 hours- Final report to follow
07/27/23 00:51 Urine Culture - Final
Urine NO GROWTH
07/26/23 16:33 Blood Culture - Preliminary
Blood/Venous No Growth in 48 hours- Final report to follow
07/27/23 00:51 MRSA Screen - Final
Nose No Methicillin Resistant Staphylococcus aureus isolated.
07/28/23 Venous US LLE: No evidence of deep venous thrombosis of the left lower extremity.
[2023-07-29 15:30] VITALS: BP 143/73
[2023-07-29] MEDS: LOVENOX 40 MG SC (17:25)
[2023-07-29] MEDS: LOPRESSOR 75 MG PO (22:28)
[2023-07-29] MEDS: PAMELOR 50 MG PO (22:28)
[2023-07-29 23:19] VITALS: BP 152/90
[2023-07-30] MEDS: ANCEF 10 IV ×2 (00:25→08:18)
[2023-07-30] MEDS: CLEOCIN 50 IV ×2 (02:25→09:57)
[2023-07-30 07:00] VITALS: BP 157/98
[2023-07-30 07:59] LABS: % Basophils 0.7 % (0-2); % Eosinophils 10.2 % (0-6); % Immature Granulocytes 3.1 % (0-0.5); % Lymphocytes 15.2 % (20.5-51.1); % Monocytes 12.5 % (1.7-9.3); % Neutrophils 58.3 % (42.2-75.2); Absolute Basophils 0.1 10^3/uL (0-0.2); Absolute Eosinophils 0.8 10^3/uL (0-0.7); Absolute Immature Granulocytes 0.2 10^3/uL (0-0.05); Absolute Lymphocytes 1.1 10^3/uL (1.2-3.4); Absolute Monocytes 0.9 10^3/uL (0.1-0.6); Absolute Neutrophils 4.3 10^3/uL (1.4-6.5); Hemoglobin 13.5 g/dL (13.0-18.0); Mean Corp Hgb Conc. 34.6 g/dL (33.0-37.0); Mean Corpuscular Hgb 29.6 pg (27.0-31.0); Mean Corpuscular Volume 85.5 fL (80.0-94.0); Mean Platelet Volume 9.3 fL (7.4-10.4); Nucleated Red Blood Cells % 0 % (-); Platelet Count 175 10^3/uL (130-400); Red Blood Cell Count 4.56 10^6/uL (4.70-6.10); Red Cell Dist. Width 13.7 % (11.5-14.5); White Blood Cell Count 7.4 10^3/uL (4.8-10.8)
[2023-07-30 08:11] LABS: Blood Urea Nitrogen 15 mg/dl (9-20); Calcium 8.3 mg/dl (8.4-10.2); Carbon Dioxide 25 mmol/L (22-30); Chloride 104 mmol/L (98-107); Estimated Creatinine Clearance 114 ml/min; Glucose 115 mg/dl (70-99); Sodium 134 mmol/L (135-145); eGFR > 60.00
[2023-07-30] MEDS: MUCINEX 600 MG PO ×2 (08:17→20:19)
[2023-07-30] MEDS: VISBIOME 2 CAP PO (08:17)
[2023-07-30] MEDS: ZESTRIL 40 MG PO (08:17)
[2023-07-30] MEDS: LEXAPRO 10 MG PO (08:18)
[2023-07-30] MEDS: PROTONIX 40 MG PO (08:18)
[2023-07-30] MEDS: LOPRESSOR 50 MG PO (08:18)
--- NOTE | 2023-07-30 11:25 | W.PN.ID1 ---
Date of Service
Date of Service: July 30, 2023
Today's Communication
See below.
Assessment / Plan
# Suspect drug rash
-cefazolin vs clindamycin as offending drug
- worsening 'cellulitis' (prior to addition of clindamycin) could be cefazolin drug reaction
-dc cefazolin and clindamycin
- ordered a dose of famotidine and diphenhydramine
# Acute LLE leg and thigh cellulitis
- There is improvement left lower leg cellulitis.
- Drug rash superimposed on thigh cellulitis
- dc clinda and cefazolin.
- Start Unasyn 3g IV q6h. (pt reports he tolerted PCN/Amoxicillin in the past).
- Continue YESSY-Wrap leg.
- Emphasized avoidance of scratching. Of note, I witnessed patient scratching left thigh.
# Fever and leukocytosis resolved.
-Blood cx's neg to date.
# Additional Past Medical History:
HTN
Neuropathy
Past hx IVDA
incarcerated
Chief Complaint
-: Cellulitis
Subjective / Review of Systems
Leg feels better. Thigh pain continues to improve.
Still scratching.
Vital Signs / Physical Exam
Vital Signs
Vital Signs
Temp Pulse Resp BP Pulse Ox
98.0 F 79 16 157/98 97
07/30/23 07:00 07/30/23 07:00 07/30/23 07:00 07/30/23 08:17 07/30/23 10:44
Physical Exam
Constitutional: Comfortable
Eyes: No Conjunctival Hemorrhage and Sclera Anicteric
Extremities: Edema (LLE decreasing) and Erythema (LLE ankle to knee erythema decreasing. Decreased warmth. Left thigh previous pink erythema stable, however has increased redder macular erythema )
Skin: Rash (+ blanchable red macular rash on lower abdomen, left thigh, milder rash on right thigh)
Objective Data
Lab Data
Lab Results
07/30/23 06:56
07/30/23 06:56
PT 14.7 Sec (11.4-14.6) H 07/26/23 12:30
INR 1.17 07/26/23 12:30
Estimated Creat Clear 114 ml/min 07/30/23 06:56
Lactic Acid 2.4 mmol/L (0.7-2.0) H 07/26/23 18:56
Total Bilirubin 1.0 mg/dl (0.2-1.3) 07/27/23 06:15
AST 55 U/L (17-59) 07/27/23 06:15
ALT 68 U/L (0-50) H 07/27/23 06:15
Alkaline Phosphatase 53 U/L (38-126) 07/27/23 06:15
Most recent labs reviewed.
Micro Results:
07/26/23 16:33 Blood Culture - Preliminary
Blood/Venous No Growth in 72 hours- Final report to follow
07/26/23 12:30 Blood Culture - Preliminary
Blood/Venous No Growth in 72 hours- Final report to follow
07/27/23 00:51 Urine Culture - Final
Urine NO GROWTH
07/27/23 00:51 MRSA Screen - Final
Nose No Methicillin Resistant Staphylococcus aureus isolated.
07/28/23 Venous US LLE: No evidence of deep venous thrombosis of the left lower extremity.
Care Review
Plan reviewed with: Physician (Dr. Yash Goodrich)
[2023-07-30] MEDS: BENADRYL 50 MG PO ×2 (11:49→23:33)
[2023-07-30] MEDS: PEPCID 40 MG PO (11:49)
[2023-07-30] MEDS: UNASYN IV ×3 (11:50→23:33)
[2023-07-30 15:28] VITALS: BP 143/75
--- NOTE | 2023-07-30 16:47 | W.PN.HOSP.TC ---
Addendum entered and electronically signed by Raymundo Moser MD 07/30/23 21:24:
Attending Addendum-
I saw and evaluated the patient. I reviewed the resident�s note and agree with findings and plan as documented in the resident�s note. patient has worsening rash with itchiness. afebrile last 24 hours Full 12 point ROS reviewed and negative except
as documented Exam: Gen NAD heart RRR lungs clear abd soft LE- LLE pink less warm pulses intact Skin- generalized mac pap rash thunk and LE areas of excoriation on thrunk and LE Plan:
# Drug Rash- appreciate ID input, DC clinda and ancef- start unasyn- was given benadryl and famotidine- improving continue to monitor closely
# Sepsis Secondary to cellulitis- now with drug rash, unclear offending agent, appreciate ID input- DC clindamycin and ancef (orig start 07/27), start unasyn 07/29 repeat CBC in in am
# Hyponatremia- resolved, repeat BMP in am
# Leukocytosis- resolved- repeat CBC in am�
# Depression- cont meds
# HTN-stable monitor cont meds
# GERD- cont meds
Time spent coordinating care, review of plan of care with resident, review of records, med rec, consults, notes, labs, rads, d/w nursing � 52 mins
Original Note:
Today's Communication/Plan
-
DC clindamycin and cefazolin
Started Unasyn
Monitor WBC and temperature curve
Assessment / Plan
Assessment / Plan
Impression
Left lower leg cellulitis
Hyponatremia
Cough
Hypertension
Prior IV drug use
Prior tobacco use
Plan :
Left lower leg cellulitis
Suspect drug rash
DC clindamycin and cefazolin
Started on Unasyn 3 g IV every 6
Follow clinical improvement
Monitor WBC, temperature curve
Peripheral vascular ultrasound 07/26/2023
IMPRESSION: No evidence of deep venous thrombosis of the left lower extremity.
Hyponatremia
Resolved
CBC BMP in a.m
Cough
Mucinex ordered
Hypertension
Continue home meds- lisinopril and metoprolol
Prior IV drug use-denies using it
prior tobacco use-quit a year ago
DVT prophylaxis
Lovenox
Anticipated Discharge: 24 - 48 hours
Subjective/Interval History
-
Date of Service: July 30, 2023
Patient complains of itchiness all over his body especially in his abdomen, he also reports of increased warmth in the left inner thigh.
Objective Data
-
Labs:
Laboratory Results
07/30/23
06:56
WBC 7.4
Hgb 13.5
Hct 39.0
Plt Count 175
Sodium 134 L
Potassium 4.0
Chloride 104
Carbon Dioxide 25
BUN 15
Creatinine 0.8
Glucose 115 H
Calcium 8.3 L
Vital Signs:
Vital Signs
Temp Pulse Resp BP Pulse Ox
98.8 F 98 17 143/75 95
07/30/23 15:28 07/30/23 15:28 07/30/23 15:28 07/30/23 15:28 07/30/23 15:28
I&O
07/29/23 07/30/23 07/31/23
06:59 06:59 06:59
Intake Total 3205 / 3205 1440 / 1440
Output Total 1600 / 1600 3025 / 3025
Balance 1605 / 1605 -1585 / -1585
Review of Systems
-
History Source: Patient
All other systems: Reviewed and negative (Except mentioned)
Constitutional: Reports Other (Itchiness)
Physical Exam
-
General: Obese
HEENT: Normocephalic and Atraumatic
Respiratory: Clear to Auscultation
Cardiac: Regular Rhythm and S1/S2
Musculoskeletal: Other (Significant improvement of swelling in left lower extremity)
Skin: Warm ( to touch in the left inner thigh, some tenderness present. Macular rash which was blanchable present in the entire back, few on his chest)
[2023-07-30] MEDS: LOVENOX 40 MG SC (17:22)
[2023-07-30] MEDS: LOPRESSOR 75 MG PO (21:38)
[2023-07-30] MEDS: PAMELOR 50 MG PO (21:39)
[2023-07-30 23:28] VITALS: BP 146/79
[2023-07-31] MEDS: UNASYN IV (05:32)
[2023-07-31 06:41] LABS: % Basophils 0.9 % (0-2); % Eosinophils 11.1 % (0-6); % Lymphocytes 17.1 % (20.5-51.1); % Monocytes 12.3 % (1.7-9.3); % Neutrophils 52.6 % (42.2-75.2); Absolute Basophils 0.1 10^3/uL (0-0.2); Absolute Eosinophils 0.7 10^3/uL (0-0.7); Absolute Immature Granulocytes 0.4 10^3/uL (0-0.05); Absolute Lymphocytes 1.1 10^3/uL (1.2-3.4); Absolute Monocytes 0.8 10^3/uL (0.1-0.6); Absolute Neutrophils 3.5 10^3/uL (1.4-6.5); Hematocrit 35.4 % (39.0-52.0); Hemoglobin 12.9 g/dL (13.0-18.0); Mean Corp Hgb Conc. 36.4 g/dL (33.0-37.0); Mean Corpuscular Hgb 30.1 pg (27.0-31.0); Mean Corpuscular Volume 82.5 fL (80.0-94.0); Mean Platelet Volume 9.2 fL (7.4-10.4); Nucleated Red Blood Cells % 0 % (-); Platelet Count 170 10^3/uL (130-400); Red Blood Cell Count 4.29 10^6/uL (4.70-6.10); Red Cell Dist. Width 13.6 % (11.5-14.5); White Blood Cell Count 6.7 10^3/uL (4.8-10.8)
[2023-07-31 07:11] LABS: Blood Urea Nitrogen 18 mg/dl (9-20); Calcium 8.3 mg/dl (8.4-10.2); Carbon Dioxide 27 mmol/L (22-30); Chloride 104 mmol/L (98-107); Estimated Creatinine Clearance 114 ml/min; Glucose 120 mg/dl (70-99); Potassium 4.1 mmol/L (3.5-5.1); Sodium 135 mmol/L (135-145); eGFR > 60.00
[2023-07-31] MEDS: PROTONIX 40 MG PO (07:49)
[2023-07-31] MEDS: ZESTRIL 40 MG PO (07:49)
[2023-07-31] MEDS: LEXAPRO 10 MG PO (07:49)
[2023-07-31] MEDS: MUCINEX 600 MG PO ×2 (07:50→19:37)
[2023-07-31] MEDS: VISBIOME 2 CAP PO (07:50)
[2023-07-31] MEDS: LOPRESSOR 50 MG PO (07:50)
--- NOTE | 2023-07-31 10:41 | W.PN.ID1 ---
Date of Service
Date of Service: July 31, 2023
Today's Communication
DC Unasyn
Start levofloxacin.
See below.
Assessment / Plan
# Drug rash with cefazolin/Unasyn
cefazolin dc'd 07/29 with improvement of abdominal rash
Unasyn started 07/29 (pt reports tolerated in past) - > pruritic posterior rash persisting today
- Peripheral eosinophilia trended up.
-DC Unasyn
-Can give dose of famotidine and diphenhydramine
# Acute LLE leg and thigh cellulitis overall improving.
-(s/p cefazolin/Unasyn) d4 abx
- DC Unasyn due to rash
-Unable to use linezolid due to drug interaction with escitalopram and nortriptyline
-Ordered Levofloxacin 750mg po qd (for strep coverage) x 5 more days (total 7 days abx course)
ECG without prolonged QTc.
# Fever and leukocytosis resolved.
-Blood cx's neg to date.
# Additional Past Medical History:
HTN
Neuropathy
Past hx IVDA
incarcerated
Chief Complaint
-: Cellulitis
Subjective / Review of Systems
c/o back very itchy.
left ankle peterson
Vital Signs / Physical Exam
Vital Signs
Vital Signs
Temp Pulse Resp BP Pulse Ox
97.2 F 61 20 146/79 94
07/30/23 23:28 07/31/23 07:49 07/30/23 23:28 07/31/23 07:49 07/31/23 08:36
Physical Exam
Constitutional: No Acute Distress and Comfortable
Eyes: Sclera Anicteric and Erythema
Cardiovascular: Regular Rate and S1/S2
Pulmonary: Clear
Gastrointestinal: Soft and Non Tender
Extremities: Edema (LLE resolving) and Erythema (significant decrease erythema LLE, and left thigh. Distal left left laterally and posteriorly darker red purplish discoloration)
Skin: Rash (Macular rash on abdomen and left thigh resolved; posterior back blanchable erythema)
Objective Data
Lab Data
Lab Results
07/31/23 06:20
07/31/23 06:20
PT 14.7 Sec (11.4-14.6) H 07/26/23 12:30
INR 1.17 07/26/23 12:30
Estimated Creat Clear 114 ml/min 07/31/23 06:20
Lactic Acid 2.4 mmol/L (0.7-2.0) H 07/26/23 18:56
Total Bilirubin 1.0 mg/dl (0.2-1.3) 07/27/23 06:15
AST 55 U/L (17-59) 07/27/23 06:15
ALT 68 U/L (0-50) H 07/27/23 06:15
Alkaline Phosphatase 53 U/L (38-126) 07/27/23 06:15
C-Reactive Protein 52.50 mg/L (0.0-10.00) H 07/30/23 06:56
Most recent labs reviewed.
Micro Results:
07/26/23 16:33 Blood Culture - Preliminary
Blood/Venous No Growth in 4 days- Final report to follow
07/26/23 12:30 Blood Culture - Preliminary
Blood/Venous No Growth in 4 days- Final report to follow
07/27/23 00:51 Urine Culture - Final
Urine NO GROWTH
07/27/23 00:51 MRSA Screen - Final
Nose No Methicillin Resistant Staphylococcus aureus isolated.
07/28/23 Venous US LLE: No evidence of deep venous thrombosis of the left lower extremity.
Care Review
Plan reviewed with: Physician (Dr. Goodrich)
[2023-07-31] MEDS: LEVAQUIN 750 MG PO (11:49)
[2023-07-31] MEDS: BENADRYL 50 MG PO ×2 (11:56→18:06)
--- NOTE | 2023-07-31 13:42 | CM ---
Per ID patient to start levofloxacin. Patient still needs acute care setting.
Plan: Case management will continue to follow and assist with discharge planning. Patient will return to long-term when medically stable.
--- NOTE | 2023-07-31 14:54 | W.PN.HOSP.TC ---
Addendum entered and electronically signed by Raymundo Moser MD 07/31/23 21:43:
Attending Addendum-
I saw and evaluated the patient. I reviewed the resident�s note and agree with findings and plan as documented in the resident�s note. patient with worsening rash with itchiness once again on new abx. afebrile last 24 hours Full 12 point ROS
reviewed and negative except as documented Exam: Gen NAD heart RRR lungs clear abd soft LE- LLE pink less warm pulses intact Skin- generalized mac pap rash back and LE, areas of excoriation on thrunk and LE Plan:
# Drug Rash- recurrent after DC clinda and ancef and start of unasyn-DC unasyn give benadryl and famotidine-start levaquin 750 x 5 days. monitor for drug rash.- updated allergy list
# Sepsis Secondary to cellulitis- appreciate ID input- allergy to clindamycin, ancef, and unasyn- start levaquin 07/30 x 5 days- repeat CBC in in am
# Hyponatremia- resolved, repeat BMP in am
# Leukocytosis- resolved- repeat CBC in am�
# Depression- cont meds
# HTN-stable monitor cont meds
# GERD- cont meds
Time spent coordinating care, review of plan of care with resident, review of records, med rec, consults, notes, labs, rads, d/w nursing and ID � 55 mins
Original Note:
Today's Communication/Plan
-
Discontinued Unasyn
Start levofloxacin
Continue Benadryl
Assessment / Plan
Assessment / Plan
Impression
Left lower leg cellulitis with new onset of drug rash
Hyponatremia
Cough
Hypertension
Prior IV drug use
Prior tobacco use
Plan :
Left lower leg and left thigh cellulitis with new onset of drug rash
Suspect drug rash
DC clindamycin and cefazolin
Started on Unasyn 3 g IV every 6-discontinued
Peripheral eosinophilia
New purplish discoloration seen in left lower extremity- suspect drug reaction from Unasyn
Since patient is on escitalopram and nortriptyline, linezolid can cause serotonin syndrome.
Therefore levofloxacin 750 mg PO for 5 more days
Benadryl, famotidine for itching
ID evaluation appreciated
There is overall improvement in LLE and thigh cellulitis
Follow clinical improvement
Monitor WBC, temperature curve
Peripheral vascular ultrasound 07/26/2023
IMPRESSION: No evidence of deep venous thrombosis of the left lower extremity.
Hyponatremia
Resolved
CBC BMP in a.m
Cough
Mucinex ordered
Hypertension
Continue home meds- lisinopril and metoprolol
Prior IV drug use-denies using it
prior tobacco use-quit a year ago
DVT prophylaxis
Lovenox
Anticipated Discharge: 24 - 48 hours
Subjective/Interval History
-
Date of Service: July 31, 2023
Patient complains of red, purplish discoloration in the lower left extremity on the lateral side near the ankle. He reports that he had burning sensation at night, tender to touch, increased itching on his abdomen and back.
Objective Data
-
Labs:
Laboratory Results
07/31/23
06:20
WBC 6.7
Hgb 12.9 L
Hct 35.4 L
Plt Count 170
Sodium 135
Potassium 4.1
Chloride 104
Carbon Dioxide 27
BUN 18
Creatinine 0.8
Glucose 120 H
Calcium 8.3 L
Vital Signs:
Vital Signs
Temp Pulse Resp BP Pulse Ox
97.2 F 61 20 146/79 94
07/30/23 23:28 07/31/23 07:49 07/30/23 23:28 07/31/23 07:49 07/31/23 08:36
I&O
07/30/23 07/31/23 08/01/23
06:59 06:59 06:59
Intake Total 1440 / 1440 1140 / 1140
Output Total 3025 / 3025 1775 / 1775
Balance -1585 / -1585 -635 / -635
Review of Systems
-
All other systems: Reviewed and negative (Except mentioned)
Skin: Reports Itching and Other (Red/purplish discoloration of the skin in the left lower extremity)
Physical Exam
-
General: Well Developed and Obese
HEENT: Normocephalic and Atraumatic
Respiratory: Clear to Auscultation
Cardiac: Regular Rhythm and S1/S2
GI: Soft, Nontender and Nondistended
Musculoskeletal: Other (Edema in left lower extremity improving)
Skin: Rash (Purplish discoloration present left lower extremity laterally near the ankle, tender to touch. Improves erythema in the left inner thigh, not warm to touch. Maculopapular rash with confluent present in the entire back and in the lower
abdomen (improving))
Neuro: AO x 3
Psych: Calm
Data Reviewed
-
Medical Tests (Nuc Med, Echo etc): Report Reviewed by me and Discussed with Physician
[2023-07-31 15:00] VITALS: BP 158/85
[2023-07-31] MEDS: LOVENOX 40 MG SC (17:43)
[2023-07-31] MEDS: TYLENOL 650 MG PO (18:05)
[2023-07-31] MEDS: LOPRESSOR 75 MG PO (21:14)
[2023-07-31] MEDS: PAMELOR 50 MG PO (21:14)
[2023-07-31 23:22] VITALS: BP 153/92
[2023-08-01 07:30] VITALS: BP 136/90
--- NOTE | 2023-08-01 08:01 | W.PN.HOSP.TC ---
Today's Communication/Plan
-
Continue antibiotics. ID follow-up.
Assessment / Plan
Assessment / Plan
Physical exam:
General: Well Developed, Well Nourished and No Apparent Distress
HEENT: Normocephalic, Atraumatic and Moist Mucous Membranes
Respiratory: Clear to Auscultation; Negative Wheezes, Rales or Rhonchi
Cardiac: Regular Rhythm and S1/S2
GI: Soft, Nontender and Nondistended
Musculoskeletal: Left lower extremity erythema improving from what it was described prior. Mild tenderness on palpation in the lower third bhatti area. No Clubbing, No Cyanosis and No Edema
Neuro: Awake, Alert and Oriented
Psych: Calm
A/P:
Impression
Left lower leg cellulitis with new onset of drug rash
Hyponatremia
Cough
Hypertension
Prior IV drug use
Prior tobacco use
Plan :
Left lower leg and left thigh cellulitis with new onset of drug rash
Suspect drug rash
DC clindamycin and cefazolin
Started on Unasyn 3 g IV every 6-discontinued
Peripheral eosinophilia
New purplish discoloration seen in left lower extremity- suspect drug reaction from Unasyn
Since patient is on escitalopram and nortriptyline, linezolid can cause serotonin syndrome.
Therefore levofloxacin 750 mg PO for 5 more days
Benadryl, famotidine for itching
ID evaluation appreciated
There is overall improvement in LLE and thigh cellulitis but he still feels symptomatic.
Appreciated ID follow-up today on 07/31
Follow clinical improvement
Monitor WBC, temperature curve
Peripheral vascular ultrasound 07/26/2023
IMPRESSION: No evidence of deep venous thrombosis of the left lower extremity.
Hyponatremia
Resolved
No need to repeat labs
Cough
Mucinex ordered
Hypertension
Continue home meds- lisinopril and metoprolol
Prior IV drug use-denies using it
prior tobacco use-quit a year ago
DVT prophylaxis
Lovenox
Anticipated Discharge: 24 - 48 hours
Subjective/Interval History
-
Date of Service: August 01, 2023
Patient complains of intermittent pain and swelling on left lower extremity. No chest pain or shortness of breath. Afebrile. Officer guards at bedside
Objective Data
-
Labs:
Laboratory Results
08/01/23
07:52
WBC Pending
Hgb Pending
Hct Pending
Plt Count Pending
Sodium Pending
Potassium Pending
Chloride Pending
Carbon Dioxide Pending
BUN Pending
Creatinine Pending
Glucose Pending
Calcium Pending
Vital Signs:
Vital Signs
Temp Pulse Resp BP Pulse Ox
97.9 F 73 18 136/90 98
08/01/23 07:30 08/01/23 07:30 08/01/23 07:30 08/01/23 07:30 08/01/23 07:30
I&O
07/31/23 08/01/23 08/02/23
06:59 06:59 06:59
Intake Total 1140 / 1140 2400 / 2400
Output Total 1775 / 1775 2700 / 2700
Balance -635 / -635 -300 / -300
Review of Systems
-
All other systems: Reviewed and negative
[2023-08-01 08:13] LABS: Hematocrit 39.1 % (39.0-52.0); Hemoglobin 13.6 g/dL (13.0-18.0); Mean Corp Hgb Conc. 34.8 g/dL (33.0-37.0); Mean Corpuscular Hgb 29.9 pg (27.0-31.0); Mean Corpuscular Volume 85.9 fL (80.0-94.0); Mean Platelet Volume 9.2 fL (7.4-10.4); Platelet Count 197 10^3/uL (130-400); Red Blood Cell Count 4.55 10^6/uL (4.70-6.10); Red Cell Dist. Width 13.7 % (11.5-14.5); White Blood Cell Count 6.4 10^3/uL (4.8-10.8)
[2023-08-01 08:21] LABS: Blood Urea Nitrogen 18 mg/dl (9-20); Calcium 8.8 mg/dl (8.4-10.2); Carbon Dioxide 28 mmol/L (22-30); Chloride 105 mmol/L (98-107); Estimated Creatinine Clearance 101 ml/min; Glucose 123 mg/dl (70-99); Potassium 4.4 mmol/L (3.5-5.1); Sodium 136 mmol/L (135-145); eGFR > 60.00
[2023-08-01] MEDS: ZESTRIL 40 MG PO (09:58)
[2023-08-01] MEDS: MUCINEX 600 MG PO ×2 (09:58→20:14)
[2023-08-01] MEDS: PROTONIX 40 MG PO (09:58)
[2023-08-01] MEDS: LEVAQUIN 750 MG PO (09:58)
[2023-08-01] MEDS: VISBIOME 2 CAP PO (09:58)
[2023-08-01] MEDS: LOPRESSOR 50 MG PO (09:58)
[2023-08-01] MEDS: LEXAPRO 10 MG PO (09:59)
[2023-08-01] MEDS: TYLENOL 650 MG PO (10:03)
[2023-08-01] MEDS: BENADRYL 50 MG PO ×2 (10:03→20:21)
--- NOTE | 2023-08-01 10:57 | W.PN.ID1 ---
Date of Service
Date of Service: August 01, 2023
Today's Communication
Continue abx.
Assessment / Plan
# Drug rash with cefazolin/Unasyn
cefazolin dc'd 07/29 with improvement of abdominal rash
Unasyn started 07/29 (pt reports tolerated in past) - > pruritic posterior rash persisted
- Peripheral eosinophilia trended up.
- Unasyn discontinued
- improvement with famotidine and diphenhydramine
# Acute LLE leg and thigh cellulitis overall improving.
-(s/p cefazolin/Unasyn) d4 abx
- Unasyn d/c'ed due to rash
- Unable to use linezolid due to drug interaction with escitalopram and nortriptyline
- Continue Levofloxacin 750mg po qd (for strep coverage) x 4 more days (total 7 days abx course)
- ECG without prolonged QTc.
# Fever and leukocytosis resolved.
-Blood cx's neg to date.
# Additional Past Medical History:
HTN
Neuropathy
Past hx IVDA
incarcerated
Chief Complaint
-: Cellulitis
Subjective / Review of Systems
Patient reports intermittent leg swelling. Notes redness is improved.
Review of Systems: No Fever
Vital Signs / Physical Exam
Vital Signs
Vital Signs
Temp Pulse Resp BP Pulse Ox
97.9 F 73 18 136/90 98
08/01/23 07:30 08/01/23 07:30 08/01/23 07:30 08/01/23 07:30 08/01/23 07:30
Physical Exam
Constitutional: No Acute Distress, Comfortable and Non-toxic
Pulmonary: Non Labored; Negative Wheezes
Gastrointestinal: Non Distended
Extremities: Edema (Mild; left lower extremity) and Erythema (Left lower extremity; mild)
Musculoskeletal: Negative Joint Swelling or Joint Effusion
Neurological: Awake and Alert
Psychological: Calm
Objective Data
Lab Data
Lab Results
08/01/23 07:52
08/01/23 07:52
PT 14.7 Sec (11.4-14.6) H 07/26/23 12:30
INR 1.17 07/26/23 12:30
Estimated Creat Clear 101 ml/min 08/01/23 07:52
Lactic Acid 2.4 mmol/L (0.7-2.0) H 07/26/23 18:56
Total Bilirubin 1.0 mg/dl (0.2-1.3) 07/27/23 06:15
AST 55 U/L (17-59) 07/27/23 06:15
ALT 68 U/L (0-50) H 07/27/23 06:15
Alkaline Phosphatase 53 U/L (38-126) 07/27/23 06:15
C-Reactive Protein 52.50 mg/L (0.0-10.00) H 07/30/23 06:56
Most recent labs reviewed.
Micro Results:
07/26/23 16:33 Blood Culture - Final
Blood/Venous No Growth - Final Report
07/26/23 12:30 Blood Culture - Final
Blood/Venous No Growth - Final Report
07/27/23 00:51 Urine Culture - Final
Urine NO GROWTH
07/27/23 00:51 MRSA Screen - Final
Nose No Methicillin Resistant Staphylococcus aureus isolated.
07/28/23 Venous US LLE: No evidence of deep venous thrombosis of the left lower extremity.
[2023-08-01 15:20] VITALS: BP 133/76
[2023-08-01] MEDS: LOVENOX 40 MG SC (17:36)
[2023-08-01] MEDS: PAMELOR 50 MG PO (21:39)
[2023-08-01] MEDS: LOPRESSOR 75 MG PO (21:58)
[2023-08-01 23:51] VITALS: BP 146/87
[2023-08-02 07:30] VITALS: BP 152/94
--- NOTE | 2023-08-02 08:23 | W.PN.HOSP.TC ---
Today's Communication/Plan
-
Continue antibiotics.
Assessment / Plan
Assessment / Plan
Physical exam:
General: Well Developed, Well Nourished and No Apparent Distress
HEENT: Normocephalic, Atraumatic and Moist Mucous Membranes
Respiratory: Clear to Auscultation; Negative Wheezes, Rales or Rhonchi
Cardiac: Regular Rhythm and S1/S2
GI: Soft, Nontender and Nondistended
Musculoskeletal: Left lower extremity erythema improving. No tenderness on palpation in the lower third bhatti area. No Clubbing, No Cyanosis and No Edema
Neuro: Awake, Alert and Oriented
Psych: Calm
A/P:
Impression
Left lower leg cellulitis with new onset of drug rash
Hyponatremia
Cough
Hypertension
Prior IV drug use
Prior tobacco use
Plan :
Left lower leg and left thigh cellulitis with new onset of drug rash
Suspect drug rash
DC clindamycin and cefazolin
Started on Unasyn 3 g IV every 6-discontinued
Peripheral eosinophilia
New purplish discoloration seen in left lower extremity- suspect drug reaction from Unasyn
Since patient is on escitalopram and nortriptyline, linezolid can cause serotonin syndrome.
Therefore levofloxacin 750 mg PO to complete 5 days
Benadryl, famotidine for itching
ID evaluation appreciated
There is overall improvement in LLE and thigh cellulitis but he still feels symptomatic.
Possible discharge tomorrow
Follow clinical improvement
Monitor WBC, temperature curve
Peripheral vascular ultrasound 07/26/2023
IMPRESSION: No evidence of deep venous thrombosis of the left lower extremity.
Hyponatremia
Resolved
No need to repeat labs
Cough
Mucinex ordered
Hypertension
Continue home meds- lisinopril and metoprolol
Prior IV drug use-denies using it
prior tobacco use-quit a year ago
DVT prophylaxis
Lovenox
Anticipated Discharge: Within 24 hours
Subjective/Interval History
-
Date of Service: August 02, 2023
Patient had some pain yesterday but improvement today but there was some question of erythema was worse although it appears to be receeding. Afebrile
Objective Data
-
Vital Signs:
Vital Signs
Temp Pulse Resp BP Pulse Ox
97.8 F 74 20 152/94 98
08/02/23 07:30 08/02/23 07:30 08/02/23 07:30 08/02/23 07:30 08/02/23 07:30
I&O
08/01/23 08/02/23 08/03/23
06:59 06:59 06:59
Intake Total 2400 / 2400 1610 / 1610
Output Total 2700 / 2700 1825 / 1825
Balance -300 / -300 -215 / -215
Review of Systems
-
All other systems: Reviewed and negative
[2023-08-02] MEDS: MUCINEX 600 MG PO ×2 (08:27→20:44)
[2023-08-02] MEDS: LEVAQUIN 750 MG PO (08:27)
[2023-08-02] MEDS: PROTONIX 40 MG PO (08:27)
[2023-08-02] MEDS: LEXAPRO 10 MG PO (08:27)
[2023-08-02] MEDS: VISBIOME 2 CAP PO (08:28)
[2023-08-02] MEDS: LOPRESSOR 50 MG PO (08:28)
[2023-08-02] MEDS: ZESTRIL 40 MG PO (08:28)
[2023-08-02] MEDS: TYLENOL 650 MG PO (15:23)
[2023-08-02] MEDS: BENADRYL 50 MG PO (15:24)
[2023-08-02 15:45] VITALS: BP 138/83
[2023-08-02] MEDS: LOVENOX 40 MG SC (17:33)
[2023-08-02] MEDS: PAMELOR 50 MG PO (21:14)
[2023-08-02] MEDS: LOPRESSOR 75 MG PO (21:14)
[2023-08-02 23:00] VITALS: BP 146/83
[2023-08-03 07:00] VITALS: BP 122/79
[2023-08-03] MEDS: VISBIOME 2 CAP PO (07:25)
[2023-08-03] MEDS: PROTONIX 40 MG PO (07:25)
[2023-08-03] MEDS: MUCINEX 600 MG PO (07:25)
[2023-08-03] MEDS: LEVAQUIN 750 MG PO (07:27)
[2023-08-03] MEDS: ZESTRIL 40 MG PO (07:27)
[2023-08-03] MEDS: LEXAPRO 10 MG PO (07:27)
[2023-08-03] MEDS: LOPRESSOR 50 MG PO (07:29)
--- NOTE | 2023-08-03 09:56 | CM ---
Patient continues on abx. Plan remains for back to [facility] when medical stable.
Plan: Case management will continue to follow and assist with discharge planning. Back to [facility] when cleared.
--- NOTE | 2023-08-03 13:36 | W.PN.ID1 ---
Date of Service
Date of Service: August 03, 2023
Today's Communication
OK for discharge from ID standpoint.
See below.
Assessment / Plan
# Acute LLE leg and thigh cellulitis overall resolving
-(s/p cefazolin/Unasyn) d4 abx
- Unasyn d/c'ed due to rash
- Unable to use linezolid due to drug interaction with escitalopram and nortriptyline
- Continue Levofloxacin 750mg po qd (for strep coverage) x 3more days (total 7 days abx course)
- ECG without prolonged QTc.
# Prurigo nodularis
- due to scratching
- Should refer to outpt dermatology
-In the meantime, apply ammonium lactate topical bid to dry skin.
# Drug rash with cefazolin/Unasyn resolved
cefazolin dc'd 07/29 with improvement of abdominal rash
Unasyn started 07/29 (pt reports tolerated in past) - > pruritic posterior rash persisted
- Peripheral eosinophilia trended up.
- Unasyn discontinued
- improvement with famotidine and diphenhydramine
# Additional Past Medical History:
HTN
Neuropathy
Past hx IVDA
incarcerated
Chief Complaint
-: Cellulitis
Subjective / Review of Systems
Continues to itch and scratch.
Otherwise leg is improving.
Vital Signs / Physical Exam
Vital Signs
Vital Signs
Temp Pulse Resp BP Pulse Ox
98.0 F 67 18 122/74 95
08/03/23 07:00 08/03/23 07:29 08/03/23 07:00 08/03/23 07:29 08/03/23 07:00
Physical Exam
Constitutional: No Acute Distress
Extremities: Edema (LLE resolving) and Erythema (LLE resolving, minimal erythema distal calf)
Skin: Rash (Scattered excoriated open lesions on abdomen, BUE, BLE)
Objective Data
Lab Data
Lab Results
08/01/23 07:52
08/01/23 07:52
PT 14.7 Sec (11.4-14.6) H 07/26/23 12:30
INR 1.17 07/26/23 12:30
Estimated Creat Clear 101 ml/min 08/01/23 07:52
Lactic Acid 2.4 mmol/L (0.7-2.0) H 07/26/23 18:56
Total Bilirubin 1.0 mg/dl (0.2-1.3) 07/27/23 06:15
AST 55 U/L (17-59) 07/27/23 06:15
ALT 68 U/L (0-50) H 07/27/23 06:15
Alkaline Phosphatase 53 U/L (38-126) 07/27/23 06:15
C-Reactive Protein 52.50 mg/L (0.0-10.00) H 07/30/23 06:56
Most recent labs reviewed.
Micro Results:
07/26/23 16:33 Blood Culture - Final
Blood/Venous No Growth - Final Report
07/26/23 12:30 Blood Culture - Final
Blood/Venous No Growth - Final Report
07/27/23 00:51 Urine Culture - Final
Urine NO GROWTH
07/27/23 00:51 MRSA Screen - Final
Nose No Methicillin Resistant Staphylococcus aureus isolated.
07/28/23 Venous US LLE: No evidence of deep venous thrombosis of the left lower extremity.
--- NOTE | 2023-08-03 14:20 | W.PN.HOSP.TC ---
Addendum entered and electronically signed by Raymundo Moser MD 08/03/23 15:04:
Attending Addendum-
I saw and evaluated the patient. I reviewed the resident�s note and agree with findings and plan as documented in the resident�s note. N new complains feels improved. no rash no fever. Full 12 point ROS reviewed and negative except as documented
Exam: Gen NAD heart RRR lungs clear abd soft LLE mild pink Skin- no rash noted LE no edema Plan:
# Drug Rash- resolved allergy to: clinda ancef and unasyn, tolerating levaquin
# Sepsis Secondary to cellulitis- appreciate ID input- allergy to clindamycin, ancef, and unasyn- tolerating levaquin 07/30 x 5 days until 08/04 dc home
# Hyponatremia- resolved
# Leukocytosis- resolved
# Depression- cont meds
# HTN-stable
# GERD- cont meds
Time spent coordinating care, review of plan of care with resident, DC planning, review of records, med rec, consults, notes, labs, rads, d/w nursing � 35 mins
Original Note:
Today's Communication/Plan
-
Discharging today on levofloxacin 750 mg for the next 2 more days (08/05/23 last date)
Assessment / Plan
Assessment / Plan
Physical exam:
General: Well Developed, Well Nourished and No Apparent Distress
HEENT: Normocephalic, Atraumatic and Moist Mucous Membranes
Respiratory: Clear to Auscultation; Negative Wheezes, Rales or Rhonchi
Cardiac: Regular Rhythm and S1/S2
GI: Soft, Nontender and Nondistended
Musculoskeletal: Left lower extremity erythema improving. No tenderness on palpation in the lower third bhatti area. No Clubbing, No Cyanosis and No Edema
Neuro: Awake, Alert and Oriented
Psych: Calm
A/P:
Impression
Left lower leg cellulitis with new onset of drug rash
Hyponatremia
Cough
Hypertension
Prior IV drug use
Prior tobacco use
Plan :
Left lower leg and left thigh cellulitis with new onset of drug rash
Suspect drug rash-resolved
DC clindamycin and cefazolin
Started on Unasyn 3 g IV every 6-discontinued
Peripheral eosinophilia
New purplish discoloration seen in left lower extremity- suspect drug reaction from Unasyn - improving
Since patient is on escitalopram and nortriptyline, linezolid can cause serotonin syndrome.
Therefore levofloxacin 750 mg PO 4 another 2 more days until 08/05/2023. Total of 10-day course
Patient has received a dose this morning
ID evaluation appreciated
There is overall improvement in LLE and thigh cellulitis
Discharging today
Prurigo nodularis
Due to scratching
Apply ammonium lactate topical twice daily
Outpatient dermatology follow-up
Peripheral vascular ultrasound 07/26/2023
IMPRESSION: No evidence of deep venous thrombosis of the left lower extremity.
Hyponatremia
Resolved
No need to repeat labs
Cough
Mucinex ordered
Hypertension
Continue home meds- lisinopril and metoprolol
Prior IV drug use-denies using it
prior tobacco use-quit a year ago
DVT prophylaxis
Lovenox
Anticipated Discharge: Today
Subjective/Interval History
-
Date of Service: August 03, 2023
Patient denies swelling or tenderness in his lower extremities
Objective Data
-
Vital Signs:
Vital Signs
Temp Pulse Resp BP Pulse Ox
98.0 F 67 18 122/74 95
08/03/23 07:00 08/03/23 07:29 08/03/23 07:00 08/03/23 07:29 08/03/23 07:00
I&O
08/02/23 08/03/23 08/04/23
06:59 06:59 06:59
Intake Total 1610 / 1610 1040 / 1040
Output Total 1825 / 1825 2350 / 2350
Balance -215 / -215 -1310 / -1310
Review of Systems
-
History Source: Patient
All other systems: Reviewed and negative
Skin: Reports Itching
Physical Exam
-
General: Well Developed and Well Nourished
HEENT: Normocephalic and Atraumatic
Respiratory: Clear to Auscultation
Cardiac: Regular Rhythm and S1/S2
GI: Soft, Nontender and Nondistended
Musculoskeletal: No Edema
Skin: Dry; Negative Warm or Rash
Neuro: AO x 3
Psych: Calm
Data Reviewed
-
Labs: Labs Reviewed by me and Discussed with Physician
--- NOTE | 2023-08-03 14:26 | W.DCSUMMARY ---
Addendum entered and electronically signed by Raymundo Moser MD 08/03/23 15:05:
Attending Addendum:
Read reviewed and agree. See same day progress note for additional details.
Mayito Moser MD
Original Note:
Documented by User: Yash Goodrich MD, Resident 08/03/23 14:40
Discharge Summary
Discharge Data
Date of Admission: 07/28/23
Date of Discharge: 08/03/23
-
Pending Results: No
Hospital Course
Discharge diagnosis
Acute left lower extremity and thigh cellulitis
Prurigo nodularis
Hospital course
63-year-old male presented to the ED with left thigh pain. Patient resides in [facility] and was evaluated there by medical staff on 07/26/2023. In the ED patient complained of left lower extremity and thigh pain along with
redness and swelling. Erythema was also associated with pruritus. In the ED white vitals were stable . Sodium was started on Ancef 1 g IV plus vancomycin 1 g and IV fluids. The next day patient complained of increased pain and warmth in the left
inner thigh extending up to his groin. Patient continued to be symptomatic on 2 antibiotics. Patient was also febrile, 1 true fever of 100.4 in 24 hours time between 07/25 to 07/26. Blood culture and urine culture showed no growth. Vancomycin was
switched to clindamycin to decrease toxin production and cefazolin was to be continued. Patient's symptoms improved a little the next day but soon he developed a maculopapular rash on his lower abdomen and all over his back. Clindamycin and
cefazolin was discontinued due to potential drug reaction. IV Unasyn was started but over the next 24 hours patient developed intense itching, new purplish discoloration on one third of the lower extremity. Unasyn was stopped immediately.
Famotidine and Benadryl were given to the patient as needed. Asked the patient is on SSRIs and due to reaction with linezolid, levofloxacin 750 per oral was started for a course of 5 days. Total antibiotic course of 10 days. On the discharge day
patient's symptoms have significantly improved, no edema, resolved erythema, nontender to touch, no warmth. Maculopapular rash has also improved.
Acute left lower extremity and thigh cellulitis
Continue levofloxacin 750 mg PO for the next 2 days (last dose on 08/05/2023), total 10-day course antibiotics.
Prurigo nodularis
Topical twice daily to dry skin
Follow-up outpatient with dermatology
Discharge Plan
-
Patient Disposition: Detention
Discharge Diagnosis/Procedures: Left lower extremity and thigh cellulitis
Prurigo nodularis
Condition: Good
Diet: No restrictions
Activity: No restrictions
Activity Restrictions/Additional Instructions:
Apply topical ammonium lactate twice a day to dry skin.
Referrals:
[facility] [Family Provider] -
Prescriptions:
New
ammonium lactate 12 % cream
1 applic topical BID 30 Days Qty: 45 0RF
levofloxacin 750 mg tablet
750 mg PO DAILY 2 Days Qty: 2 0RF
Continued
multivitamin Tablet
1 tab PO DAILY Qty: 30 0RF
naproxen 375 mg Tablet
375 mg PO BID PRN (Reason: pain) Qty: 30 0RF
hydroxyzine pamoate 50 mg Capsule
50 mg PO BID PRN (Reason: anxiety) Qty: 30 0RF
nortriptyline 25 mg Capsule
50 mg PO HS Qty: 30 0RF
metoprolol tartrate 50 mg Tablet
50 mg PO DAILY Qty: 30 0RF
metoprolol tartrate 50 mg Tablet
75 mg PO HS Qty: 30 0RF
omeprazole 20 mg Capsule,Delayed Release(Dr/Ec)
20 mg PO DAILY Qty: 30 0RF
lisinopril 40 mg Tablet
40 mg PO DAILY Qty: 30 0RF
escitalopram oxalate 10 mg Tablet
10 mg PO DAILY Qty: 30 0RF
Discharge Orders:
Discharge Patient (As Directed); Ordered 08/03/23
Ordered By: Yash Goodrich
Discharge Date and Time
Print Language: [place]

Documented by User: Raymundo Moser MD 08/03/23 14:56
Discharge Summary
Discharge Data
Date of Admission: 07/28/23
Date of Discharge: 08/03/23
Discharge Plan
-
Patient Disposition: Detention
Discharge Diagnosis/Procedures: Left lower extremity and thigh cellulitis
Prurigo nodularis
Condition: Good
Diet: No restrictions
Activity: No restrictions
Activity Restrictions/Additional Instructions:
Apply topical ammonium lactate twice a day to dry skin.
Referrals:
[facility] [Family Provider] -
Prescriptions:
New
ammonium lactate 12 % cream
1 applic topical BID 30 Days Qty: 45 0RF
levofloxacin 750 mg tablet
750 mg PO DAILY 2 Days Qty: 2 0RF
Continued
multivitamin Tablet
1 tab PO DAILY Qty: 30 0RF
naproxen 375 mg Tablet
375 mg PO BID PRN (Reason: pain) Qty: 30 0RF
hydroxyzine pamoate 50 mg Capsule
50 mg PO BID PRN (Reason: anxiety) Qty: 30 0RF
nortriptyline 25 mg Capsule
50 mg PO HS Qty: 30 0RF
metoprolol tartrate 50 mg Tablet
50 mg PO DAILY Qty: 30 0RF
metoprolol tartrate 50 mg Tablet
75 mg PO HS Qty: 30 0RF
omeprazole 20 mg Capsule,Delayed Release(Dr/Ec)
20 mg PO DAILY Qty: 30 0RF
lisinopril 40 mg Tablet
40 mg PO DAILY Qty: 30 0RF
escitalopram oxalate 10 mg Tablet
10 mg PO DAILY Qty: 30 0RF
Discharge Orders:
Discharge Patient (As Directed); Ordered 08/03/23
Ordered By: Yash Goodrich
Discharge Date and Time
Print Language: [place]
[2023-08-03] MEDS: LAC HYDRIN, AM LACTIN LOTION 1 APPLIC TOPICAL (14:43)
[2023-08-03] MEDS: PREVNAR 20 0.5 ML IM (14:47)
[2023-08-03 15:00] VITALS: BP 134/75
== END 2023-08-03 17:06 | DRG 871 ==
LOC: 3 WEST ACU 08:21
PROVIDERS: Physician Assistant; Student in an Organized Health Care Education/Training Program; ADMITTING PHYSICIAN Internal Medicine; ATTENDING PHYSICIAN Family Medicine; CONSULT PHYSICIAN Internal Medicine Infectious Disease; EMERGENCY PHYSICIAN Emergency Medicine
DX: A41.9 Sepsis, unspecified organism (principal); A48.0 Gas gangrene; L03.116 Cellulitis of left lower limb; E87.20 Acidosis, unspecified; E87.1 Hypo-osmolality and hyponatremia; I10 Essential (primary) hypertension; Z87.891 Personal history of nicotine dependence; F32.A Depression, unspecified; K21.9 Gastro-esophageal reflux disease without esophagitis; L28.1 Prurigo nodularis; L27.0 Generalized skin eruption due to drugs and medicaments taken internally
CPT/HCPCS: 80048; 80053; 82550; 82962; 83605; 85025; 85027; 85610; 86140; 86141; 87040; 87070; 87086; 90677; 93005; 93971; 99285; G0009

== ENCOUNTER 2023-08-07 20:35 | Emergency (ER) | payer OTHER, SELFPAY ==
[2023-08-07 20:42] VITALS: BP 145/86
[2023-08-07 20:45] VITALS: BP 145/86
[2023-08-07 21:10] LABS: % Basophils 1.1 % (0-2); % Eosinophils 4.5 % (0-6); % Immature Granulocytes 0.9 % (0-0.5); % Lymphocytes 22.4 % (20.5-51.1); % Monocytes 8.6 % (1.7-9.3); % Neutrophils 62.5 % (42.2-75.2); Absolute Basophils 0.1 10^3/uL (0-0.2); Absolute Eosinophils 0.3 10^3/uL (0-0.7); Absolute Immature Granulocytes 0.1 10^3/uL (0-0.05); Absolute Lymphocytes 1.3 10^3/uL (1.2-3.4); Absolute Monocytes 0.5 10^3/uL (0.1-0.6); Absolute Neutrophils 3.5 10^3/uL (1.4-6.5); Hematocrit 35.3 % (39.0-52.0); Hemoglobin 12.1 g/dL (13.0-18.0); Mean Corp Hgb Conc. 34.3 g/dL (33.0-37.0); Mean Corpuscular Hgb 30.2 pg (27.0-31.0); Mean Platelet Volume 8.9 fL (7.4-10.4); Nucleated Red Blood Cells % 0 % (-); Platelet Count 214 10^3/uL (130-400); Red Blood Cell Count 4.01 10^6/uL (4.70-6.10); Red Cell Dist. Width 13.8 % (11.5-14.5); White Blood Cell Count 5.6 10^3/uL (4.8-10.8)
[2023-08-07 21:20] LABS: Lactic Acid 1.7 mmol/L (0.7-2.0)
[2023-08-07 21:28] LABS: ALT (SGPT) 28 U/L (0-50); AST (SGOT) 41 U/L (17-59); Albumin 4.1 g/dl (3.5-5.0); Alkaline Phosphatase 51 U/L (38-126); Blood Urea Nitrogen 14 mg/dl (9-20); Calcium 9.1 mg/dl (8.4-10.2); Carbon Dioxide 27 mmol/L (22-30); Chloride 104 mmol/L (98-107); Estimated Creatinine Clearance 100 ml/min; Glucose 140 mg/dl (70-99); Sodium 138 mmol/L (135-145); Total Bilirubin 0.5 mg/dl (0.2-1.3); Total Protein 7.5 g/dl (6.3-8.2); eGFR > 60.00
--- NOTE | 2023-08-07 22:30 | ED.GENMED ---
History of Present Illness
General
Chief Complaint: Skin Problem
Source: patient and family
Exam Limitations: none
Time Seen by Provider: 08/07/23 20:44
Travel History
Have you had any contact with someone who has COVID-19?: No
Do you have any symptoms of coronavirus? Fever > 100 degrees, chills, cough, shortness of breath, sore throat, loss of taste or smell, muscle aches, or headache?: No
History of Present Illness
History of Present Illness:
63-year-old male who presents from [facility] with worsening redness and swelling of his left lower extremity. Patient was here about a week ago and was discharged on oral antibiotics. The patient was discharged on August 02. Patient
states that the redness started come back about 2 days ago and is progressing. The facility placed an IV and started Ancef and Vanco. Patient denies fevers. Does feel like the foot is quite swollen.
Past History
Past History
ED Past Medical History: Other (Migraines, neuropathy, sleep apnea, hypertension, hepatitis C, anxiety, history of IV drug abuse)
Phy Exam
Physical Exam
Physical Exam:
CONSTITUTIONAL Vital signs reviewed, Patient alert and oriented to person, place and time. Well-appearing
HEAD atraumatic, normocephalic.
EYES eyelids normal to inspection, Extraocular muscles intact, Conjunctiva normal, Sclera normal.
NECK normal range of motion, Trachea midline, no jugular venous distention.
RESP no respiratory distress
BACK No obvious deformities
UPPER EXTREMITY Gross Range of motion normal, gross motor strength normal
LOWER EXTREMITY Gross range of motion normal, Gross motor strength normal, left lower extremity edema noted, warm and well-perfused. There is redness to the distal and that is mild in nature. There is a marked written and marker by healthcare
staff at the nursing home that is at the proximal one third of the lower extremity. The redness does not extend to this vikas. Question whether the redness is improving. No open wounds noted
NEURO Speech normal, No focal motor deficits include, Sabrina coma scale 15, Memory normal, Cranial Nerves intact to screening exam.
SKIN Skin warm, dry, and normal in color.
PSYCHIATRIC Patient oriented to person place and time, Normal affect.
Course
Orders/Labs/Results
Orders:
Orders
08/07/23 20:55
US Periph Venous LOWER Ext LT Urgent
Comment:
Reason For Exam: edema, recently hospitalized
08/07/23 21:03
Complete Blood Count/With Diff Urgent
Comprehensive Metabolic Panel Urgent
Lactic Acid Q4H
Comment: CANCEL 2nd LACTIC ACID IF 1st LACTIC ACID IS LESS THAN 2
Blood Culture Q30M
JORDAN Source: Blood/Venous
Specimen Description:
08/07/23 21:30
Blood Culture Q30M
JORDAN Source: Blood/Venous
Specimen Description:
08/08/23 01:00
Lactic Acid Q4H
Comment: CANCEL 2nd LACTIC ACID IF 1st LACTIC ACID IS LESS THAN 2
Abnormal Lab Results
08/07/23
21:03
RBC 4.01 L 10^6/uL
(4.70-6.10)
Hgb 12.1 L g/dL
(13.0-18.0)
Hct 35.3 L %
(39.0-52.0)
Abs Immat Gran (auto) 0.1 H 10^3/uL
(0-0.05)
Immature Gran % 0.9 H %
(0-0.5)
Glucose 140 H mg/dl
(70-99)
08/07/23 21:03
08/07/23 21:03
Vital Signs
Initial and Last Documented VS:
Initial Vital Signs
Pulse Ox
97
08/07/23 20:40
Last Documented Vital Signs
Temp Pulse Resp BP Pulse Ox
98.6 F 57 16 123/74 98
08/07/23 20:42 08/07/23 23:19 08/07/23 23:19 08/07/23 23:19 08/07/23 23:19
MDM/Problems Addressed
MDM/Problems Addressed:
Cellulitis, lower extremity
*Radiology
Radiology exam reviewed: radiology read reviewed
*Pulse Oximetry
Patient hypoxic: no
*Critical Care Note
Total Time (30-74mins, 75-104mins- exclusive of procedures): Not Applicable
Data Reviewed
Review of Other/Old Records Reveals: Progress Notes (Infectious disease note reviewed) and Discharge Summary (Discharge summary reviewed from August 2023)
Source: police (Nursing Home guards)
Patient Management
Escalation/DeEscalation of care consider admission/obs:
White count normal. Labs grossly unremarkable. Patient appears well and already getting Vanco and Ancef at the nursing home. I think this is actually reasonable treatment. The redness currently does not extend to the vikas that was placed. I question
whether this is improvement. Also could question whether he has a little bit of lymphedema. Will need outpatient follow-up. No open wounds to consider osteomyelitis. No crepitus. No clinical concern for fasciitis. Afebrile
ED Attending Note
-
Portions of this chart may have been created with voice recognition software.� Occasional wrong word or��sound alike� substitutions may have occurred due to the inherent limitations of voice recognition software.
Discharge Plan
Departure
Patient Disposition: Home (Routine Discharge)
Date of Disposition: 08/08/23
Time of Disposition: 00:15
Patient with high blood pressure during this ER visit?: No
Discharge Problem:
Cellulitis of left lower extremity, Edema
Instructions: Cellulitis (Skin Infection), Adult (DC), [facility]
Prescriptions:
No Action
ammonium lactate 12 % cream
1 applic topical BID 30 Days Qty: 45 0RF
levofloxacin 750 mg tablet
750 mg PO DAILY 2 Days Qty: 2 0RF
multivitamin Tablet
1 tab PO DAILY Qty: 30 0RF
naproxen 375 mg Tablet
375 mg PO BID PRN (Reason: pain) Qty: 30 0RF
hydroxyzine pamoate 50 mg Capsule
50 mg PO BID PRN (Reason: anxiety) Qty: 30 0RF
nortriptyline 25 mg Capsule
50 mg PO HS Qty: 30 0RF
metoprolol tartrate 50 mg Tablet
50 mg PO DAILY Qty: 30 0RF
metoprolol tartrate 50 mg Tablet
75 mg PO HS Qty: 30 0RF
omeprazole 20 mg Capsule,Delayed Release(Dr/Ec)
20 mg PO DAILY Qty: 30 0RF
lisinopril 40 mg Tablet
40 mg PO DAILY Qty: 30 0RF
escitalopram oxalate 10 mg Tablet
10 mg PO DAILY Qty: 30 0RF
Referrals:
[facility]. [facility],Fac[facility] [Family Provider] -
Amelie Lloyd MD [Active] -
Activity Restrictions/Additional Instructions:
If symptoms persist, please see infectious disease in the next 1 week. Return immediately for fevers, increased redness, shortness of breath, worsening pain or any other concerns. Please continue vancomycin 1 g twice daily and cefazolin 1 g 3
times a day.
Interventions
Interventions:
*Risk Screen - Suicide Last Done: 08/07/23 20:42
*General Assessment Last Done: 08/07/23 20:42
*Neglect/Abuse Screening Last Done: 08/07/23 20:42
ED- Fall Risk Assessment Last Done: 08/07/23 21:08
ED-Skin Assessment Last Done: 08/07/23 21:08
Discharge Date and Time
Print Language: NICARAGUAN
[2023-08-07 23:17] VITALS: BP 123/74
[2023-08-07 23:19] VITALS: BP 123/74
[2023-08-08 00:20] VITALS: BP 128/79
[2023-08-08 00:30] VITALS: BP 157/79
== END 2023-08-08 00:33 | disposition home or self-care (01) ==
LOC: EMR 20:35
PROVIDERS: EMERGENCY PHYSICIAN Emergency Medicine
DX: L03.116 Cellulitis of left lower limb (principal); R60.0 Localized edema; F41.9 Anxiety disorder, unspecified; G47.30 Sleep apnea, unspecified; G43.909 Migraine, unspecified, not intractable, without status migrainosus; G62.9 Polyneuropathy, unspecified; I10 Essential (primary) hypertension; F19.11 Other psychoactive substance abuse, in remission; Z86.19 Personal history of other infectious and parasitic diseases; Z88.1 Allergy status to other antibiotic agents
CPT/HCPCS: 99284; 80053; 83605; 85025; 87040; 93971

== ENCOUNTER → 2023-11-06 06:21 | Day surgery (SDC) | payer OTHER, SELFPAY | LOC: GI 06:21 | PROVIDERS: ATTENDING PHYSICIAN Internal Medicine Gastroenterology | DX: Z12.11 Encounter for screening for malignant neoplasm of colon (principal); K64.8 Other hemorrhoids; K57.30 Diverticulosis of large intestine without perforation or abscess without bleeding; D12.4 Benign neoplasm of descending colon; K63.5 Polyp of colon | CPT/HCPCS: 45385; 88305 ==